=== PATIENT | female | born 1985 | race Caucasian/White ===

== ENCOUNTER 2023-08-19 21:22 | Outpatient (OUT) | payer OTHER, SELFPAY ==
[2023-08-23 16:09] LABS: HPV Aptima Positive (Negative); Pap IG (Image Guided) Note (.)
== END 2023-08-19 21:23 | disposition home or self-care (01) ==
LOC: LAB 21:27
PROVIDERS: Visit Provider Obstetrics & Gynecology
DX: R87.612 Low grade squamous intraepithelial lesion on cytologic smear of cervix (LGSIL) (principal)
CPT/HCPCS: 87624; G0145

== ENCOUNTER 2023-09-26 11:14 | Outpatient (REF) | payer OTHER, SELFPAY ==
--- OUTSIDE RECORDS SUMMARY | 2023-11-15 11:18 | XMS_ITS | CCD ---
Author Name Unknown Address [address] [facility] [address] [place] [id number] Organization [facility] Care Team Providers Care Lump Inspector Name Role Phone REQUEST, DR NONE LISTED Primary Care Unavaila ble SUSANNE ., DR BARROW Admitting Unavailable SUSANNE ., DR BARROW Consulting Unavailable SUSANNE ., DR BARROW Attending Unavailable REQUEST, DR BURROWS LISTED Primary Care Unavaila ble SUSANNE ., DR BARROW Admitting Unavailable SUSANNE ., DR BARROW Consulting Unavailable SUSANNE ., DR BARROW Attending Unavailable Provider, None Primary Care Unavailable Dean Soni Attending Unavailable Dean Soni Admitting Unavailable PUSHPA SKINNER Attending Unavailable PUSHPA SKINNER Attending Unavailable PUSHPA SKINNER Attending Unavailable Pushpa Skinner Attending Provider [phone] Unavailable Primary Care Provider Unavailpatricia e Pushpa Skinner Attending Unavailable Pushpa Skinner Admitting Unavailable Allergies Allergy Classification Reported Allergen(s) Allergy Type Date of Onset Reaction(s) Facility (1 source) Sulfonamides (Antibiotic) Drug allergy (disorder) 10-04-19 17 [facility] Repository (1 source) No Known Medication Allergies; Translations: [No Known Medication Allergies] Propensity to adverse reactions to drug (disorder) [facility] Repository (1 source) Sulfamethoxazole / Trimethoprim Drug Allergy 09-20-19 18 Unknown [facility] Medications Current Medications Medication Drug Class(es) Dates Sig (Normalized) Sig (Original) clobetasol propionate 0.5 mg/ml topical cream (1 source) Corticosteroid Start: 09-26-2023 End: 10-26-2023 clobetasol (Temovate) 0.05 % cream Indications: Vaginal irritation Apply 1 application topically in the morning. 45 g 1 09/26/2023 10/26/2023 Active FLUoxetine 10 mg oral capsule (1 source) Serotonin Reuptake Inhibitor Start: 05-16-2023 End: 05-15-2024 take 1 capsule by mouth in the morning FLUoxetine (PROzac) 10 MG capsule Indications: Anxiety associated with depression Take 1 capsule (10 mg) by mouth in the morning. 30 capsule 11 05/16/2023 05/15/2024 Active Problems Active Problems Problem Classification Problem Date Documented Date Episodic/Chronic Cancer of cervix (2 sources) Low grade squamous intraepithelial lesion on cytologic smear of cervix (LGSIL); Translations: [Atypical squamous cells of undetermined significance on cervical Papanicolaou smear] Onset: 01-24-2023 09-26-2023 Episodic Other female genital disorders (2 sources) Vaginal irritation; Translations: [Other specified noninflammatory disorders of vagina] Onset: 09-26-2023 10-17-2023 Episodic Other screening for suspected conditions (not mental disorders or infectious disease) (4 sources) Encounter for screening for malignant neoplasm of cervix; Translations: [ENC SCREENING MALIG NEOPLASM CERV] Onset: 01-21-2023 Episodic Past or Other Problems Problem Classification Problem Date Documented Date Episodic/Chronic Immunizations and screening for infectious disease (1 source) Encounter for screening for human papillomavirus (HPV); Translations: [ENC SCREENING HUMAN PAPILLOMAVIRUS] Onset: 08-18-2022 Episodic Results Test Name Value Interpretation Reference Range Facility [facility] 10-23-2023 L Specimen: [id number] Received: 10/24/23 Status: BIPIN Jensen Num: [id number] Spec Type: Surgical Subm Dr: Pushpa Skinner Tissues: A VAGINA - biopsy (VAG BX) Procedures: HE/2, Gross/Micro L4 Age/ Patient Sex Location Account Attending Physician Jesus Pradhan 38/F LABELL [id number] Pushpa Skinner SPEC NUM: [id number] RECD: 10/24/23 STATUS: BIPIN JENSEN NUM: [id number] GRACIE: 10/23/23- SUBM DR: Pushpa Skinner ENTERED: 10/24/[address]: Rabia,Lab SPEC TYPE: Surgical DEPT: DANIELLE MOSQUEDA ORDERED: HE/2, Gross/Micro L4 ORDERED: HE/2, Gross/Micro L4 Pathological Diagnosis Vaginal biopsy: Spongiotic dermatitis. Clinical Information Vaginal irritation right labia, N89.8 Gross Description Received in formalin labeled with the patient's name, date of and vaginal biopsy per requisition is a 0.4 cm in diameter circular, duncan to elizabeth mucosa excised to a depth of 0.3 cm. The specimen is inked. Entirely submitted in one cassette labeled A1. CPT Codes 10166 ---- ---- Specimen: [id number] Received: 10/24/23 Status: BIPIN Jensen Num: [id number] Spec Type: Surgical Subm Dr: Pushpa Skinner Tissues: A VAGINA - biopsy (VAG BX) Procedures: ROBEBrian Gross/Micro L4 ---- Patient: CarolynnJesus [id number] (Continued) ---- Signed (signature on file) Yosi Gonzales MD 10/26/[address] [place] [address] Coding Summaryon 05-23-2023 Coding Summary HTMLBase 64 VrptkbhlJYy3cTh+PGhlYW Q+KP2FEAHkC62uyZNwqC8h J6AIUUgTEjtiEWDVIXcPOu JoscWwSO0fwWUxBUUj IC8+UR1kREOsApckcIDdh5 T7bTG9H31kcy1sTOeblWL8 ZYStAiOsbehab6dlpFs6SP cuNmluOyBt UYRvrB84JUO4vU73Dm93aF JdyNBdr4eweGx3InHlVBDv HMK1gDtzLGqgj4QvGCHoK8 7lrKBje9L3 LJUgvFqnjOBaPwHsdRQ1wG 7hWSyoobgiz3cpviaiVnf6 bp49pHIuy3M4iGO2G6Aqzd J2EZYpzFDy CvboeXSNjS8wfhyws8nnbf wwTzPjDKTeZBd7VUd7CHAj uIvuWmNhGM21WRP2FXEkir ZgU2NkYIKe pFzcVaK3t4F7Ii0WT6UTBb qfC3NSEYDELEvceJP+PC90 lt98L2MdVyiyGdq8VAAfWI L1oNW1tH5p CIEySJqil2J0iDW1M5Mwkc Xofp5ry8rlCMYgNHdgD72m tCJhk2J7RILyhOA2BRFgbX xvRvFqcG54 Oyc+LLAhgMytb5BpCuzuo3 fhu3nvtJb5JtqwZABhmqAp qHdmOMW1j1FtAv5bKJFqtA H0oFX0vM4e MtUaEmK4LXwlR090OfCisD EgOffvS60kX1EzrAI+PHRy Pzf8IFKblMlvXH2dJ9NlRM RpbmctbGVm bTqtAT8hAHSjfqvqVASkvE 2gQVDuC5k6PiGiOaQ5PMed P7QuQHYihoncRx96cI9pEg CaLiD7MQwd W9TlogY1AQYttHGvAHaoLH O7V17bs8F4MPPxVDWiTNS2 wEH1eH8plPgcyaewcDEixW sgdmVydGlj ETjpGRwuW833ZMDnaAsbWj NvZGluZyBEYXRlOiAgMDkv MDcvMjAyMzwvdGQ+PHRkIH L0qVvbQQSl jWSoZIayDa0yfLsejIbiMU 8bAFJwmfhnGCTfeW9vQUMm fKHovMfnFX2bZJWpbgnhp0 43LwGsNWF3 OWLpwRLkG9NwgW7fIiVlCO ZeTHNgV3YwvVZmFKwwK512 BAvnDxQ2ROQorxZeG2ZqCY FsaWduOiB0 e7S6Ic7Vm2JbizorE2YzvC IcObSpWeokYKl9N6BzAcsw dHI+KL22NPAlMV77DFu2CT A8iNnzWUdh KNNsK1JpqA4fNiEqFNQaVT RkOyc+PHRhYmxlIHdpZHRo IPmpZBPtKnQrrQrtTD1dTi 9yZGVyLWNv tKxguMUbViPvo0ywAAAlJX fsKY4hlKwbV8VlzGR3WFJs i1d4Bv19B79zL5JypYK+PG VrsZJ9bNZ1 kL5mFcKuXtG0JJqfM577Ml RmmAJfBszfe1ech8vxqDz1 PxH9DBUkosKwqCisSKA6l8 YsBk88R40j IHdpZHRoPSIxNSUiIHZhbG ilxz9ybF7zGn0+PGNvbCB3 xUE3xP4vWyXjRlP2ASynI4 49InRvcCIv Xkonx1jja8ifvEc0LzGeWN JqxnSqhYpqIXC3d3XtWx27 I4OafWdvo2SrNps5eo41mI Znt0I4eCG7 D4BuLWChswkxlOLkmXmnUT 9qXFIazsheFNMbqP5hHGAp H3b0JhUiHaB6KTplO8Xvkk N1DSOmzFGm DDGmzFKHwM7iqqbxo8khbb hyBpEnSWZaDUn8KUf1BBAs uMuzLoKcHBT8HdP5VMM8dZ JnrS5ahYxs umierT2mBqf+MFU7rQLgiS TGPF9bJspmdZJ+PHRkIHN0 bEtfQZouLLRmfD5qXMPrM0 b2UlLwBlK6 RGmnJ6SnicF4VEIytBEcTN XfeRRDeC8ytbbip1qkotzo LxAkHKZqAQi1FBx0SAFkaM duOiBsZWZ0 UsB7AHV1gOLjcX8qoTwksp ucmF0lSrc+QmlydGggRGF0 INb4X7SnHph7QNUvkUxsYF 0ncGFkZGlu Yc8wcFzhxUxhWU3yHXZpkq wka144XzDfr5fhCFYpsTEi YKjkNRY2N91tt7Z3BVHvSQ EwODJ0qJV9 vL3xeVllmbiguIYouBdswh RagEwaGNidTXehD784PUYc iDrgMvLkOZm8A5TtCqr1YP CudEojMY0k jSVfGXnyBe6qxDyzdPetKS 5mAZTumrgex371XbNgp5go YJOdsOYtNSsrYEI5S48dw4 W3KTDaHTMu PKK2iMO4kK3pgCdoyjpalC VmdDsgdmVydGljYWwtYWxp H687OTAzdBnjOmSeiLf1N3 LxQxs6INFs bIfsOY8crGPqXNatDv2veP kypYbaBI1oHEBhkcwmb804 PjNvc9ffDZHllXHrEUwyVN D1W89gu3Z2 MVZxRKYoQLT5tBE2vA3neA lnbjogbGVmdDsgdmVydGlj ATfhMQaiS119LIFmvMhnAf BhdGllbnQg VSykQVy8I3AgVfsqnCK+PC 28FXDmWO88sSGkqPDln5cn yOc7ZhOnJSJrIUL4iPywUV zkb3TfVECw S88woSKlp1T7UOIroCkegE ApVfJzvNE2tW3cNFmfpuih g1vriedgDecnh3hnto24qS 59U51bYCln ZHRoPSIzMCUiIHZhbGlnbj 9rsS6hOa2+YJHwrFN1mMJ8 qW6qMYPiEgU1JUbjK004Im RvcCIvPjxj l6hju8odsEy1UcM1IXYhne RvhCosCTZ8g6GuHg01H51e IHdpZHRoPSIyMCUiIHZhbG wibb2olY6t Ii8+DAVsiUO8tDQ2gZ7eTl PyRyV1CDqpU729RfKrpJUp NcetU90vW9KauDG+PHRyPj w9WCKhdXig HN5foVLaUBykTa6tXEK2Qp IyTyQmSDetG3SsMCRbcagq fnxjcHF6XTIrQDQexZ55Fw 9udDogMTBw vQIZzK3sfnjnw7qhosmjZj FnLZQhIUq6GUl5KCJwzNtp RoHzBPG8EdP5GBV0iOHwcK 1hbGlnbjog oP9uG2QeEBLsubghUc67mP 9vYsNrOkB3HNizBxs+Uk9T XFvyXB2UGvRTNXrKXXOJHU wvdGQ+PHRk ELQ9rNxxJIznGQVseW7bMM MfB2h2QlRiKcJ5PHhmW6Bd ZQKcqanoSz54uK6hAoGeUn E1XKnbC3Cn qwZ7VAKlvKIwVAsrLXU3P6 2ck9F0UHDcLLLqCRM3hTE5 rR8qlZnfluipvNQsrSgeqf VydGljYWwt ITztZ932LWJkaJwiSyNyLc T6OzN3LSf8L0JjTbp8SYFs vXnhBO5tfKOxUWbzCz3azS wlmWhgZO1z ATJjkojdWJZawL8sEVTuuG GrxAjuEE7nNBWqtmuug849 MsOnTFV0CQMblGIsL0PkjT 9yOiAjMDAw KBGtW3ZbsOTgKXmvL424OO lbXeS3ESYxieRaZ5LvUTAf zQgzPoI0h6Z3Nd6zWQLTLY FyczwvdGQ+ VCBvJSO9vXyuVBjkIYZwiU 7bTWOdX1t2DkToUpT8WDxr Q0VoNZEmkhwmTl43sL6oMh TnOaQ2PJwg B0MbgyL9TPCvvQFcADhfEH J1Y78nk7U5QTZmWXIuFDO9 tGU4hM6lkIibaaqwhTJsmO sgdmVydGlj BIvzPHniL468KOQosYhqXb ZFTUFMRTwvdGQ+PHRkIHN0 bFhhTYqtVMQnpE3tADMbY1 i6EoRrNjW2 LIdkT3EtAFUwqvmgCw90yJ 1zRhDfFdK3QFibF5BzxcR0 ZTBjxPRrRDlqPOV6Z62wt6 Y3AQXrPLBw VZY3uNF8cX9tlIdixkttnF VmdDsgdmVydGljYWwtYWxp X588CKXvjJtxYq5LCC55KW 07U7UlGtrp dGFibGU+PHRhYmxlIHdpZH JcTBjbTYByOxGteFowAF1f Tz2eSZVfLJMdlMnrgQSzXu Vif4wgOJOk PWisQG7lbBkvG0VfkEM2KW Bod6a4Pf75B26xQ7KjrYC+ HFYzlXB2cHQ4vF4yYlDdAk F2KOnyV979 SjObxIElUaaff4rtr7ajiY h0SsPnHTZwgrAkvNpbDCO5 r8RpMi59H40eQFkiXRQcQH IyMCUiIHZh rQlxfm2oyW1aIy7+PGNvbC O2rVS0yK7aNcAyXbX4UUja L427UeThdVWqXwuhD17nJ3 JvdXA+PHRy Odt5ATVfgIqvVS7kqXHiOD saUk2lYKF3TxBnYkAqGDgu W6VtYMDtmvkifppvxPS8VP AlHSEbtE75 Gv1vpUnaMv7tNVIlNBJ6BV ItaRZuG4IlkP6nDlVxEUIe LDHwC3YluWCvBPzvT905YN wgFiB6XRDh ilUzR7NzIBOozNkvMcU8q4 S6If8BgRnduJOtJX5jCcFb QZt0J1QwOfr6SSRynMhqCJ 0ncGFkZGlu Aw0jfQqeyRreMN0wWHCjcp wcr707HxCko6ioKHIxgPUa AZelNSO5N29wv0Q6USBnNT DoWEJ1eDR6 dU6cxTzkmrtadFCeuYwrzn JuyBpiSEwqTJpsS349BFMv rJayOjRHRwt7Y0GrXzb7EO QedBayGH5q yVNfMNzqLg7vjSerpYauMW 7bEWDkfdfch203YcXon0jt QIZgsJOvAZmvEOR3X84rj6 C4LCPsAKCn WXI7qMK3qP9abTvosshayH VmdDsgdmVydGljYWwtYWxp P710IIOmaUznNv1CAvp1I4 ScLab0QQDi dHngFD0xwQGeFJcdJw4dlO zgyCzqEZ2qSAHdsbwzr515 DvKwj7mfHMImuSEwIHzoSO X9Z25gy2V0 NTQpOFXnZMT2uQK5mM1zbJ lnbjogbGVmdDsgdmVydGlj QGweHHamD408ZMLewFazPn BheWVyOjwv dGQ+AX31gz84S2TwBoebSt l1VHQjYKG2jEW9wU4kOGWj XKlhg2R6tEY0I5RbvrDcrt 9gu1erYVDl ZTo (more content not included)... [facility] Consent Formson 05-23-2023 Consent Forms [id number]#[id number] [facility] Discharge Instructions [id number]#1.00 OTGTIFF [facility] ED Clinical Summaryon 2022 ED Clinical Summary [facility] ? Urgent Care [address] [place] [id number] Clinical Summary PERSON INFORMATION Name: JESUS PRADHAN Age: 37 Years Sex: FEMALE : 1985 MRN: Acct#: Visit Reason: UC - Elbow Injury; LEFT ELBOW PAIN/INJURY Arrival: 05/22/2023 10:27:29 Discharge: 05/22/2023 11:45:00 LOS: 000 01:18 Check In: 05/22/2023 10:27:29 Checkout: 05/22/2023 11:45:00 Address: [address] [place] [id number] PCP: Provider, None PROVIDER INFORMATION Provider Role Assigned Unassigned Dean Soni PA-C ED PA 05/22/2023 10:30:32 Janette Turpin ED Nurse 05/22/2023 10:35:49 VITALS INFORMATION Vital Sign Triage Latest Temperature Tympanic Temperature Temporal Artery Pulse Rate O2 Sat Respiratory Rate Blood Pressure /100 mmHg /100 mmHg MEDICAL INFORMATION Medications Given: Allergy Information: No Known Medication Allergies PHYSICIAN DOCUMENTATION DISCHARGE INFORMATION: Discharge Disposition: Home Discharge Location: Home PATIENT EDUCATION INFORMATION Instructions: Elbow Sprain Follow-Up: With: Address: When: Return to this practice , only if needed DIAGNOSIS: Sprain of left elbow Patient Understands: Yes - Patient/family/caregiv er verbalizes understanding of instructions given Comment: Normal [facility] ED Patient Summaryon 023 ED Patient Summary [facility] ? Urgent Care [address] [place] [address] PATIENT DISCHARGE INSTRUCTIONS Patient Information Name: JESUS PRADHAN Age: 37 Years Date of : 1985 Reason For Visit: UC - Elbow Injury; LEFT ELBOW PAIN/INJURY Arrival Time: 05/22/2023 10:27:29 Primary Care Physician: Provider, Silvestre Attending Physician: Dean Soni PA-C Comment: Patient Education With: Address: When: Return to this practice , only if needed Elbow Sprain An elbow sprain is an injury to one of the strong bands of tissue (ligaments) that connect the bones of the elbow. Ligaments connect the three bones that make up the elbow joint. This injury usually occurs on the inside of the elbow and rarely on the outside. There are three types of elbow sprains: ? A grade 1 sprain is a stretching of a ligament. This injury causes minor pain and swelling, but the joint remains stable. ? A grade 2 sprain is a partial ligament tear. This injury may cause moderate pain and swelling, and a looseness in the joint that causes it to move more than normal (laxity). ? A grade 3 sprain is a complete ligament tear. This injury will cause severe pain and swelling, and the joint will become unstable. What are the causes? This condition may be caused by: ? A sudden injury (acute sprain). This may result from falling on an outstretched arm or severely twisting or straining your elbow joint. ? An overuse injury. This injury occurs gradually over time from doing activities that involve the same elbow movements over and over again. This type of injury is common in activities that require overhand throwing. What are the signs or symptoms? Symptoms of this condition include: ? Pain. ? Pain that gets worse with elbow movement. ? Swelling. ? Bruising. ? Stiffness of the elbow joint. ? Laxity of the elbow joint. ? Inability to use the elbow joint. ? Tingling or numbness. ? Hearing a pop or feeling a tear at the time of the injury. How is this diagnosed? This condition may be diagnosed based on: ? Your symptoms and history of an injury or activity that puts stress on the elbow. ? A physical exam. The health care provider will check the movement and stability of your elbow. ? Imaging tests, such as an X-ray or MRI. These tests can show how severe the sprain is and can be used to rule out a broken bone or stress fracture. How is this treated? At first, this condition may be treated by protecting, resting, icing, applying pressure (compression), and raising (elevating) the injured elbow above the level of your heart. This is known as NULL therapy. Additional treatment depends on the severity of the sprain. ? A grade 1 sprain may need only NULL therapy. ? A grade 2 sprain may be treated with NULL therapy and an elbow brace. ? A grade 3 sprain usually requires surgery to repair the ligament. Your health care provider may also recommend taking a nonsteroidal anti-inflammatory drug (NSAID) to reduce pain and swelling. You may also need to do certain exercises to maintain full movement and to strengthen the muscles of the shoulder, forearm, and elbow (physical therapy). Follow these instructions at home: If you have a brace: ? Wear the brace as told by your health care provider. Remove it only as told by your health care provider. ? Loosen the brace if your fingers tingle, become numb, or turn cold and blue. ? Keep the brace clean. ? If the brace is not waterproof: ? Do not let it get wet. ? Cover it with a watertight covering when you take a bath or shower. Managing pain, stiffness, and swelling ? If directed, put ice on your elbow: ? Put ice in a plastic bag. ? Place a towel between your skin and the bag. ? Leave the ice on for 20 minutes, 2?3 times a day. ? Move your fingers often to reduce stiffness and swelling. ? Elevate your elbow above the level of your heart while you are sitting or lying down. Activity ? Avoid activities that cause elbow pain. ? Return to your normal activities as told by your health care provider. Ask your health care provider what activities are safe for you. ? Ask your health care provider when it is safe to drive if you have an elbow brace. ? Do exercises as told by your health care provider. General instructions ? Wear an elastic bandage or compression wrap only as told by your health care provider. ? Take wbsi-bjj-sstwtef and prescription medicines only as told by your health care provider. ? Do not use any products that contain nicotine or tobacco, such as cigarettes, e-cigarettes, and chewing tobacco. These can delay healing. If you need help quitting, ask your health care provider. ? Keep all follow-up visits as told by your health care provider. This is important. Contact a health care provider if: ? Your symptoms get worse. (more content not included)... Normal [facility] Urgent Care Note- Provideron 05-22-2023 Urgent Care Note- Provider Patient: JESUS PRADHAN Age: 37 years Sex: FEMALE : 1985 Associated Diagnoses: Sprain of left elbow Author: Dean Soni PA-C History of Present Illness OCCUPATIONAL HEALTH FOLLOW-UP Date of injury: 05/14/23 Claim #: Employer: [employer] Mechanism of Injury: Slipped walking down an embankment, catching herself with her left arm outstretched. Diagnosis: Left elbow sprain This is a 37 year old here today with concerns of persisting left elbow pain after a fall at work on 05/14/23. She works for [employer] and was out in the field walking down an embankment when she slipped and fell, catching herself with an outstretched arm on the left side. She had immediate left elbow pain. She was able to get herself back up and continue to work, but pain is persisting and she feels it should be checked. It hurts to twist her forearm and full extend. It is mostly laterally where the symptoms are. No fevers, chills or malaise. No other joint pains or myalgias. No numbness, tingling or weakness. No skin rashes or lesions. No other injuries from the fall, and no previous injuries to that arm. There are no other associated symptoms. Nothing else makes the symptoms better or worse. Symptoms are described as sudden onset, moderate in nature and persisting. Health Status Allergies: No active allergies have been recorded.. Past Medical/ Family/ Social History Medical history: No active or resolved past medical history items have been selected or recorded.. Surgical history: No active procedure history items have been selected or recorded.. Family history: No family history items have been selected or recorded.. Social history: Social & Psychosocial Habits No Data Available . Problem list: No qualifying data available . Physical Examination Vital Signs Vital Signs 05/22/2023 10:44 EDT Temperature Temporal 36.9 DegC Peripheral Pulse Rate 80 bpm Respiratory Rate 16 br/min Systolic Blood Pressure 160 mmHg HI Diastolic Blood Pressure 100 mmHg HI BP Method Manual . GENERAL: Awake, alert and oriented to person, place and situation. Well nourished, well developed, non toxic, NAD. EXTREMITIES: TTP lateral left elbow, no TTP medially, pain with full extension, fair flexion, pain with rotation, no cyanosis, clubbing or obvious edema. Good muscle tone. Brisk cap refill distally, radial pulses 2+ bilaterally. SKIN: Normal inspection, no visualized ecchymosis, abrasion or rash. NEUROLOGIC: Light touch sensation in tact, strength 5/5 in bilateral upper extremities. Normal mentation. No focal neurological deficits appreciated. Medical Decision Making Orders Launch Orders Radiology: XR Elbow Complete Left (Order): 05/22/2023 10:57 EDT Stat, pain, fall, Allow Modification Per Radiologist, Transport Mode: Cart. Radiology results: X-ray (ST) X-Ray: ? XR Elbow Complete Left ? 05/22/23 11:00:00 CLINICAL HISTORY:?Pain after falling. ? COMPARISON:?None available. ? TECHNIQUE:?AP, lateral, oblique and radial and oblique radiographs of the left elbow were obtained. ? FINDINGS: ? There is no fracture, dislocation, significant joint effusion, degenerative changes, worrisome bone destruction, pathologic calcifications, or other findings of concern identified. ? ? IMPRESSION: ? NO DISPLACED FRACTURE OR POSTTRAUMATIC COMPLICATION IDENTIFIED. ? ? ? Signed By: Mazin Chung MD . Rest, ice, compress, and elevate. The patient reapplies her own elbow sleeve and extremity is neurovascularly in tact at the time of discharge. Tylenol/Motrin. She is off now until Saturday and feels confident she can resume normal work, no restrictions, especially by then. Return with new, or worsening symptoms, or symptoms failing to improve as expected and the patient voiced their understanding. Questions answered. Follow-up here only as needed. Impression and Plan Diagnosis Sprain of left elbow ([id number] S53.402A, Discharge, Medical) Plan Condition: Stable. Disposition: Discharged: Time 05/22/2023 11:29:00, to home. Patient was given the following educational materials: Elbow Sprain, Elbow Sprain. Follow up with: ; Return to this practice , only if needed. Counseled: Patient, Regarding diagnosis, Regarding diagnostic results, Regarding treatment plan, Patient indicated understanding of instructions. [Electronically Signed on: 05/22/2023 11:30 EDT] Dean Soni PA-C [Verified on: 05/22/2023 11:30 EDT] Dean Soni PA-C [facility] [place] 023 Urgent Care Record [facility] ? Urgent Care [address] [place] [address] PATIENT DISCHARGE INSTRUCTIONS Patient Information Name: JESUS PRADHAN Age: 37 Years Date of : 1985 Reason For Visit: UC - Elbow Injury; LEFT ELBOW PAIN/INJURY Arrival Time: 05/22/2023 10:27:29 Primary Care Physician: Provider, None Attending Physician: Dean Soni PA-C Comment: Visit Diagnosis: Diagnoses This Visit Sprain of left elbow (S53.402A) UC - Elbow Injury ([id number]) If you received any narcotics, sedation, or any other medication that causes drowsiness for the next 24 hours, unless otherwise directed: ? Do not drive a car. ? Do not operate machinery such as power tools, lawn mowers, drills, sewing machines, or stoves ? Avoid alcoholic beverages and drugs for allergies, nerves, or sleep ? Do not make important personal or business decisions or sign any legal documents With: Address: When: Return to this practice , only if needed Medication Information: The exam and treatment you received today in the [facility] were for an urgent problem and are not intended as complete care. It is important for you to follow up with a doctor, nurse practitioner, or physician?s seismic survey assistant for ongoing care. If your symptoms become worse or you do not improve as expected and you are unable to reach your usual health care provider, you should return to the Emergency Department, we are available 24 hours a day. For those patients who have received Radiology results, the interpretation of your X-ray as given to you by our Urgent Care physician is only a preliminary report. The Radiologist will review your films and if there is a change in the diagnosis you will be notified by phone. Please make sure you have provided a working phone number so we can reach you if necessary. In the event that you had a lab culture while you were a patient in the Urgent Care, you will be notified by phone if there is a need to change your antibiotic. Please make sure you have provided a working phone number so we can reach you if necessary. [facility] Urgent [facility] has provided you with a complete list of medications post discharge. Please inform your team cdl driver/provider of your visit and for further instruction on these medications. Any specific questions regarding your chronic medications and dosages should be discussed with your primary care physician(s) and/or pharmacist. Additional medications on your home medication list not specifically addressed. Please contact the ordering physician if you have questions about these medications. FLUoxetine (FLUoxetine 10 mg oral capsule) 1 cap(s) Oral every day. Visit Information Allergies: Substance Reaction Symptoms Type Comments No Known Medication Allergies Drug Vital Signs: Vitals and Measurements this Visit (last charted value for your 05/22/2023 visit) Vital Signs This Visit Temperature Temporal: 36.9 DegC Peripheral Pulse Rate: 80 bpm Respiratory Rate: 16 br/min Systolic Blood Pressure: 140 mmHg Diastolic Blood Pressure: 98 mmHg Blood Pressure Method: Manual Measurements This Visit Height/Length Measured: 172 cm Weight Measured: 97.52 kg Body Mass Index: 32.96 kg/m2 Body Mass Index: 32.96 kg/m2 BSA Measured: 2.16 m2 Problems List: Problem Onset Comments No Problems found Patient Education Elbow Sprain An elbow sprain is an injury to one of the strong bands of tissue (ligaments) that connect the bones of the elbow. Ligaments connect the three bones that make up the elbow joint. This injury usually occurs on the inside of the elbow and rarely on the outside. There are three types of elbow sprains: ? A grade 1 sprain is a stretching of a ligament. This injury causes minor pain and swelling, but the joint remains stable. ? A grade 2 sprain is a partial ligament tear. This injury may cause moderate pain and swelling, and a looseness in the joint that causes it to move more than normal (laxity). ? A grade 3 sprain is a complete ligament tear. This injury will cause severe pain and swelling, and the joint will become unstable. What are the causes? This condition may be caused by: ? A sudden injury (acute sprain). This may result from falling on an outstretched arm or severely twisting or straining your elbow joint. ? An overuse injury. This injury occurs gradually over time from doing activities that involve the same elbow movements over and over again. This type of injury is common in activities that require overhand throwing. What are the signs or symptoms? Symptoms of this condition include: ? Pain. ? Pain that gets worse with elbow movement. ? Swelling. ? Bruising. ? Stiffness of the elbow joint. ? Laxity of the elbow joint. ? Inability to use the elbow joint. ? Tingling or numbness. ? Hearing a pop or feeling a te (more content not included)... Normal [facility] XR Elbow Complete Lefton XR Elbow Complete Left CLINICAL HISTORY: Pain after falling. COMPARISON: None available. TECHNIQUE: AP, lateral, oblique and radial and oblique radiographs of the left elbow were obtained. FINDINGS: There is no fracture, dislocation, significant joint effusion, degenerative changes, worrisome bone destruction, pathologic calcifications, or other findings of concern identified. IMPRESSION: NO DISPLACED FRACTURE OR POSTTRAUMATIC COMPLICATION IDENTIFIED. Final Signed (Electronic Signature): Mazin Chung MD 05/22/23 11:17 a Technologist: Dirk JAVIER [facility] Pap IG, rfx Aptima HPV, rfx 16/18,45on 01-29-2023 . . Normal [facility] Comment on above: Result Comment: Perf ormed at: WB Performed By: #### P [id number] #### [facility] [address] [address] [address] Amari Diego DIAGNOSIS: Comment Abnormal [facility] Comment on above: Result Comment: EPIT HELIAL CELL ABNORMALITY. LOW GRADE SQUAMOUS INTRAEPITHELIAL LESION (LSIL). Performed at: WB Performed By: #### P [id number] #### [facility] [address] [address] [address] Amari Diego Electronically signed by: Comment Normal [facility] Comment on above: Result Comment: Silvia Kumar MD, Pathologist Performed at: WB Performed By: #### P APHR2A #### [facility] [address] [address] [address] Amari Diego HPV Aptima Positive Abnormal Negative [facility] Comment on above: Result Comment: This nucleic acid amplification test detects fourteen high-risk HPV types (16,18,31,33,35,39,45,51,52,56,58,59,66,68) without differentiation. Performed at: =G Performed By: #### P [id number] #### [facility] [address] [address] [address] Amari Diego HPV Genotype Reflex Comment Normal [facility] Comment on above: Result Comment: Crit eria not met, HPV Genotype not performed. Performed at: WB Performed By: #### P APHR2A #### [facility] [address] [address] [address] Amari Diego Methodology: Comment Normal [facility] Comment on above: Result Comment: This liquid based ThinPrep(R) pap test was screened with the use of an image guided system. Performed at: WB Performed By: #### P APHR2A #### [facility] [address] [place] [address] Dr. Amari Diego Note: Comment [facility] Comment on above: Result Comment: The Pap smear is a screening test designed to aid in the detection of premalignant and malignant conditions of the uterine cervix. It is not a diagnostic procedure and should not be used as the sole means of detecting cervical cancer. Both false-positive and false-negative reports do occur. . Performed at: WB Performed By: #### P APHR2A #### [facility] [address] [place] [address] Dr. Amari Diego Pathologist Provided ICD10 Comment [facility] Comment on above: Result Comment: R87. [id number] Performed at: WB Performed By: #### P APHR2A #### [facility] [address] [place] [address] Dr. Amari Diego Performed by: Comment [facility] Comment on above: Result Comment: Marce Ford, Tobacco Sizer (ASCP) Performed at: WB Performed By: #### P APHR2A #### [facility] [address] [place] [address] Dr. Amari Diego Recommendation: Comment Abnormal [facility] Comment on above: Result Comment: Sugg est follow up as clinically appropriate. Performed at: WB Performed By: #### P APHR2A #### [facility] [address] [place] [address] Dr. Amari Diego Specimen adequacy: Comment [facility] Comment on above: Result Comment: Sati sfactory for evaluation. Endocervical and/or squamous metaplastic cells (endocervical component) are present. Performed at: WB Performed By: #### P APHR2A #### [facility] [address] [place] [address] Dr. Amari Diego PAP ACOG PANEL 2: 30 to 65on 08-22-2022 . . [facility] Comment on above: Result Comment: Perf ormed at: WB Performed By: #### [id number] #### [facility] [address] [place] [address] Dr. Amari Diego Age Gdln ACOG Testing 30-[address] [facility] Comment on above: Performed By: #### [id number] #### [facility] [address] [address] [address] Amari Diego DIAGNOSIS: Comment Abnormal [facility] Comment on above: Result Comment: EPIT HELIAL CELL ABNORMALITY. LOW GRADE SQUAMOUS INTRAEPITHELIAL LESION (LSIL). Performed at: WB Performed By: #### [id number] #### [facility] [address] [address] [address] Amari Dieog Electronically signed by: Comment Normal [facility] Comment on above: Result Comment: Armaan Muro MD, Pathologist Performed at: WB Performed By: #### [id number] #### [facility] [address] [address] [address] Amari Diego HPV Aptima Positive Abnormal Negative [facility] Comment on above: Result Comment: This nucleic acid amplification test detects fourteen high-risk HPV types (16,18,31,33,35,39,45,51,52,56,58,59,66,68) without differentiation. Performed at: =G Performed By: #### [id number] #### [facility] [address] [place] [address] Dr. Amari Diego HPV Genotype Reflex Comment Normal [facility] Comment on above: Result Comment: Crit eria not met, HPV Genotype not performed. Performed at: WB Performed By: #### [id number] #### [facility] [address] [place] [address] Dr. Amari Diego Methodology: Comment Normal [facility] Comment on above: Result Comment: This liquid based ThinPrep(R) pap test was screened with the use of an image guided system. Performed at: WB Performed By: #### [id number] #### [facility] [address] [place] [address] Dr. Amari Diego Note: Comment Normal [facility] Comment on above: Result Comment: The Pap smear is a screening test designed to aid in the detection of premalignant and malignant conditions of the uterine cervix. It is not a diagnostic procedure and should not be used as the sole means of detecting cervical cancer. Both false-positive and false-negative reports do occur. . Performed at: WB Performed By: #### [id number] #### [facility] [address] [address] [address] Amari Diego Pathologist Provided ICD10 Comment Normal [facility] Comment on above: Result Comment: R87. [id number] Performed at: WB Performed By: #### [id number] #### [facility] [address] [address] [address] Amari Diego Performed by: Comment Normal [facility] Comment on above: Result Comment: Ilya Nelson, Tobacco Sizer (ASCP) Performed at: [facility] Performed By: #### [id number] #### [facility] [address] [address] [address] Amari Diego Specimen adequacy: Comment Normal [facility] Comment on above: Result Comment: Sati sfactory for evaluation. No endocervical component is identified. Performed at: WB Performed By: #### [id number] #### [facility] [address] [address] [address] Amari Diego Vital Signs Date Time Vital Sign Value Performing Clinician Faci lity 10-23-2023 13:40-0500 Body mass index (BMI) [Ratio] 34.26 kg/m2 Pushpa Susanne DO Work Phone: [facility] 10-23-2023 13:40-0500 Body weight 105.23 kg Pushpa Susanne DO Work Phone: [facility] 10-23-2023 13:40-0500 Diastolic blood pressure 86 mm[Hg] Pushpa Susanne DO Work Phone: [facility] 10-23-2023 13:40-0500 Systolic blood pressure 130 mm[Hg] Pushpa Susanne DO Work Phone: [facility] Healthcare Encounters Encounter Date Encounter Type Care Provider Facility Start: 10-23-2023 End: 10-23-2023 ambulatory PUSHPA SUSANNE Not Available Start: 10-23-2023 End: 10-23-2023 Patient encounter procedure Pushpa Susanne DO Work Phone: [facility] Comment on above: Vaginal irritation Start: 10-23-2023 End: 10-23-2023 ambulatory Pushpa Susanne Work Phone: [facility] Work Phone: Start: 10-23-2023 End: 10-23-2023 Departed Referred Pushpa Susanne Work Phone: [facility] Start: 09-26-2023 End: 09-26-2023 ambulatory PUSHPA SUSANNE Not Available Start: 08-19-2023 End: 08-19-2023 ambulatory PUSHPA SUSANNE Not Available Start: 05-22-2023 End: 05-22-2023 ambulatory None Provider Facility:[facility] Start: 01-21-2023 End: 01-21-2023 ambulatory NONE LISTED REQUEST Facility: Start: 08-15-2022 End: 08-15-[address] NONE LISTED REQUEST Facility: Plan of Treatment Date Care Activity Detail Author Start: 02-24-2024 End: 02-24-2024 Patient encounter procedure 02/24/2024 2:00 PM EDT Procedure Visit [facility] [address] [place] [address] Pushpa Skinner, DO [address] [place], [place] [address] [facility] Payers Date Payer Category Payer Self-pay 2023 Unknown [employer] [id number] 2023-Present [address] [place] [address] [id number] 1987 Unknown [id number] 1987 Unknown [id number] 1987 Unknown [id number] 1987 Unknown [id number] 9 1987 Unknown [id number] 9 1987 Unknown [id number] 9 1959 Self-pay [id number] 1959 Unknown [id number] Unknown [employer] [id number] Social History Date Type Detail Facility Tobacco smoking status SCIS Unknown if ever smoked [facility] Start: 1985 Sex Assigned At Female F [facility] Start: 05-15-2023 Tobacco smoking status SCIS Smokes tobacco daily [facility] History of tobacco use Cigarette Smoker [facility] Start: 10-23-2023 Alcohol intake Ex-drinker (finding) [facility] Start: 05-15-2023 History of Social function [facility] Start: 05-15-2023 Tobacco use panel [facility] Start: 05-15-2023 Alcohol Comment occasional [facility] Start: 1985 Sex Assigned At Not on file [facility] Start: 05-14-2023 Gender identity Identifies as female gender (finding) [facility] History of Present illness Narrative 10-23-2023 Laurita Jin LPN - 10/23/2023 1:30 PM EST Note Date & Type Note Facility 10-23-2023 History of Presen t illness Narrative Reason for Appointment: Patient ID: Jesus Pradhan is a 38 y.o. female who presents for vaginal biopsy Patient presents today for Acute Visit appointment. Current Medications: has a current medication list which includes the following prescription(s): clobetasol and fluoxetine. 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 HENT: Negative. Eyes: Negative. Respiratory: Negative. Cardiovascular: Negative. Gastrointestinal: Negative. Genitourinary: Positive for genital sores. Musculoskeletal: Negative. Skin: Negative. Neurological: Negative. All other systems reviewed and are negative. Hematological: Negative. Endocrine: Negative. Allergic/Immunologic: Negative. Objective Physical Exam Constitutional: Appearance: Normal appearance. She is well-developed. Genitourinary: Vulva normal. Cardiovascular: Rate and Rhythm: Normal rate and regular rhythm. Pulmonary: Effort: Pulmonary effort is normal. Breath sounds: Normal breath sounds. Abdominal: General: Bowel sounds are normal. There is no distension. Palpations: Abdomen is soft. Tenderness: There is no abdominal tenderness. There is no guarding or rebound. Musculoskeletal: General: No swelling. Normal range of motion. Right lower leg: No edema. Left lower leg: No edema. Neurological: Mental Status: She is alert and oriented to person, place, and time. Skin: General: Skin is warm and dry. Psychiatric: Mood and Affect: Mood normal. Behavior: Behavior normal. Vitals and nursing note reviewed. Exam conducted with a dental assisting instructor present. Vitals: Estimated body mass index is 34.26 kg/m as calculated from the following: Height as of 08/19/23: 5' 9 . Weight as of this encounter: 232 lb. BP: 130/86 No LMP recorded. Patient has had an ablation. Assessment/Plan Encounter Diagnosis Name Primary? Vaginal irritation Pt presents for vulvar biopsy, consents signed. Pt placed in dorsal lithotomy position with feet in stirrups, pt draped in normal fashion. Area cleansed with alcohol, lidocaine injected after allowing sufficient time to take affect. punch biopsy used, picker box operator and scissors used to remove affected area. Placed in formalin and sent to pathology. Post-procedure instructions given. Pt to apply clobetasol cream to affected area daily for one month. Documented by Laurita Jin LPN on behalf of: Pushpa Skinner DO documented in this encounter [facility] Clinical Note 05-22-2023 Note Date & Type Note Facility 05-22-2023 Note Patient Education Ma terials Follows: Elbow Sprain An elbow sprain is an injury to one of the strong bands of tissue (ligaments) that connect the bones of the elbow. Ligaments connect the three bones that make up the elbow joint. This injury usually occurs on the inside of the elbow and rarely on the outside. There are three types of elbow sprains: ? A grade 1 sprain is a stretching of a ligament. This injury causes minor pain and swelling, but the joint remains stable. ? A grade 2 sprain is a partial ligament tear. This injury may cause moderate pain and swelling, and a looseness in the joint that causes it to move more than normal (laxity). ? A grade 3 sprain is a complete ligament tear. This injury will cause severe pain and swelling, and the joint will become unstable. What are the causes? This condition may be caused by: ? A sudden injury (acute sprain). This may result from falling on an outstretched arm or severely twisting or straining your elbow joint. ? An overuse injury. This injury occurs gradually over time from doing activities that involve the same elbow movements over and over again. This type of injury is common in activities that require overhand throwing. What are the signs or symptoms? Symptoms of this condition include: ? Pain. ? Pain that gets worse with elbow movement. ? Swelling. ? Bruising. ? Stiffness of the elbow joint. ? Laxity of the elbow joint. ? Inability to use the elbow joint. ? Tingling or numbness. ? Hearing a pop or feeling a tear at the time of the injury. How is this diagnosed? This condition may be diagnosed based on: ? Your symptoms and history of an injury or activity that puts stress on the elbow. ? A physical exam. The health care provider will check the movement and stability of your elbow. ? Imaging tests, such as an X-ray or MRI. These tests can show how severe the sprain is and can be used to rule out a broken bone or stress fracture. How is this treated? At first, this condition may be treated by protecting, resting, icing, applying pressure (compression), and raising (elevating) the injured elbow above the level of your heart. This is known as NULL therapy. Additional treatment depends on the severity of the sprain. ? A grade 1 sprain may need only NULL therapy. ? A grade 2 sprain may be treated with NULL therapy and an elbow brace. ? A grade 3 sprain usually requires surgery to repair the ligament. Your health care provider may also recommend taking a nonsteroidal anti-inflammatory drug (NSAID) to reduce pain and swelling. You may also need to do certain exercises to maintain full movement and to strengthen the muscles of the shoulder, forearm, and elbow (physical therapy). Follow these instructions at home: If you have a brace: ? Wear the brace as told by your health care provider. Remove it only as told by your health care provider. ? Loosen the brace if your fingers tingle, become numb, or turn cold and blue. ? Keep the brace clean. ? If the brace is not waterproof: ? Do not let it get wet. ? Cover it with a watertight covering when you take a bath or shower. Managing pain, stiffness, and swelling ? If directed, put ice on your elbow: ? Put ice in a plastic bag. ? Place a towel between your skin and the bag. ? Leave the ice on for 20 minutes, 2?3 times a day. ? Move your fingers often to reduce stiffness and swelling. ? Elevate your elbow above the level of your heart while you are sitting or lying down. Activity ? Avoid activities that cause elbow pain. ? Return to your normal activities as told by your health care provider. Ask your health care provider what activities are safe for you. ? Ask your health care provider when it is safe to drive if you have an elbow brace. ? Do exercises as told by your health care provider. General instructions ? Wear an elastic bandage or compression wrap only as told by your health care provider. ? Take zpjr-yss-eybyury and prescription medicines only as told by your health care provider. ? Do not use any products that contain nicotine or tobacco, such as cigarettes, e-cigarettes, and chewing tobacco. These can delay healing. If you need help quitting, ask your health care provider. ? Keep all follow-up visits as told by your health care provider. This is important. Contact a health care provider if: ? Your symptoms get worse. ? You develop new symptoms. ? Your symptoms have not improved with home care after two weeks. Get help right away if: ? You have severe pain. ? Your fingers turn white, very red, or cold and blue. Summary ? An elbow sprain is an injury to a ligament in the elbow. ? An elbow sprain can be from an acute injury or repetitive stress. ? Symptoms include pain, swelling, loss of movement, and bruising. ? At first, this condition may be treated by protecting, resting, icing, applying pressu (more content not included)... [facility] Evaluation note Note Date & Type Note Facility Evaluation note No assessment information availa [facility] Work Phone: Evaluation note Note Date & Type Note Facility Evaluation note Diagnosis Vaginal irritation Pruritus of genital organs documented in this encounter [facility] Summary Purpose Family History No Family History Records FoundNo Family History Records FoundNo Family History Records FoundNo Family History Records Found Advance Directives No Advanced Directives Records FoundNo Advanced Directives Records FoundNo Advanced Directives Records FoundNo Advanced Directives Records Found Additional Source Comments INFORMATION SOURCE (unrecogn ized section and content) DATE CREATED AUTHOR 01/30/2023 [facility] DATE CREATED AUTHOR AUTHOR'S ORGANIZ ATION 05/24/2023 [facility] DATE CREATED AUTHOR AUTHOR'S ORGANIZ ATION 10/24/2023 [facility] EPIC DATE CREATED AUTHOR AUTHOR'S ORGANIZ ATION 10/28/2023 [facility] Care Teams (unrecognized sec tion and content) Team Status: Inactive Member Role Status Dates Pushpa Skinner Attending Provider Active Start: brueric 2023 End: October 23, 2023 Goals (unrecognized section and content) Goals may be documented in a n alternate section Reason for Visit (unrecogniz ed section and content) Reason Comments vaginal biopsy FOR RECORDS PERTAINING TO PATIENTS WHO ARE OR HAVE BEEN ENROLLED IN A CHEMICAL DEPENDENCY/SUBSTANCEABUSE PROGRAM, SOME INFORMATION MAY BE OMITTED. This clinical summary was aggregated from multiple sources. Caution should be exercised in using it in the provision of clinical care. This summary normalizes information from multiple sources, and as a consequence, information in this document may materially change the coding, format and clinical context of patient data. In addition, data may be omitted in some cases. CLINICAL DECISIONS SHOULD BE BASED ON THE PRIMARY CLINICAL RECORDS. [facility] [employer] [facility]. provides no warranty or guarantee of the accuracy or completeness of information in this document.
== END 2023-09-26 11:15 | disposition home or self-care (01) ==
LOC: LAB 11:14
PROVIDERS: Visit Provider Obstetrics & Gynecology
DX: R87.610 Atypical squamous cells of undetermined significance on cytologic smear of cervix (ASC-US) (principal); R87.810 Cervical high risk human papillomavirus (HPV) DNA test positive
CPT/HCPCS: 88305; 88341; 88342

== ENCOUNTER 2023-10-23 | Outpatient (REF) | payer OTHER, SELFPAY | END 2023-10-23 00:01 | disposition home or self-care (01) | LOC: LAB | PROVIDERS: Visit Provider Obstetrics & Gynecology | DX: N89.8 Other specified noninflammatory disorders of vagina (principal) | CPT/HCPCS: 88305 ==

== ENCOUNTER 2024-02-24 20:43 | Outpatient (REF) | payer SELFPAY ==
--- OUTSIDE RECORDS SUMMARY | 2024-02-24 20:49 | XMS_ITS ---
Patient Summarization (C-CDA 2.1 CCD) Created on: February 24, 2024 Lisette GELLER~CAROLYNN : 1985 Sex: Female Author Organization Sample organization Care Team Providers Care Clinical Account Specialist Name Role Phone REQUEST, DR NONE LISTED Primary Care Unavaila ble SUSANNE ., DR BARROW Admitting Unavailable SUSANNE ., DR BARROW Consulting Unavailable SUSANNE ., DR BARROW Attending Unavailable REQUEST, DR STORMY LISTED Primary Care Unavaila ble SUSANNE ., DR BARROW Admitting Unavailable SUSANNE ., DR BARROW Consulting Unavailable SUSANNE ., DR BARROW Attending Unavailable Provider, None Primary Care Unavailable Dean Soni Attending Unavailable Dean Soni Admitting Unavailable PUSHPA SKINNER Attending Unavailable PUSHPA SKINNER Attending Unavailable PUSHPA SKINNER Attending Unavailable Pushpa Skinner Attending Provider [phone] Unavailable Primary Care Provider Unavailabl e Pushpa Skinner Attending Unavailable Pushpa Skinner Admitting Unavailable Allergies Allergy Classification Reported Allergen(s) Allergy Type Date of Onset Reaction(s) Facility (1 source) Sulfonamides (Antibiotic) Drug allergy (disorder) 10-04-19 17 [facility] Repository (1 source) No Known Medication Allergies; Translations: [No Known Medication Allergies] Propensity to adverse reactions to drug (disorder) [facility] Repository (1 source) Sulfamethoxazole / Trimethoprim Drug Allergy 09-20-19 18 Unknown [facility] Encounters Encounter Date Encounter Type Care Provider Facility Start: 10-23-2023 End: 10-23-2023 ambulatory PUSHPA SUSANNE Not Available Start: 10-23-2023 End: 10-23-2023 Patient encounter procedure Pushpa Susanne DO Work Phone: [facility] Comment on above: Vaginal irritation Start: 10-23-2023 End: 10-23-2023 ambulatory Pushpa Susanne Work Phone: [facility] Work Phone: Start: 10-23-2023 End: 10-23-2023 Departed Referred Pushpa Skinner Work Phone: [facility] Start: 09-26-2023 End: 09-26-2023 ambulatory PUSHPA SANCHEZO Not Available Start: 08-19-2023 End: 08-19-2023 ambulatory PUSHPA SANCHEZO Not Available Start: 05-22-2023 End: 05-22-2023 ambulatory None Provider Facility:[facility] Start: 01-21-2023 End: 01-21-2023 ambulatory NONE LISTED REQUEST Facility: Start: 08-15-2022 End: 08-15-2022 ambulatory NONE LISTED REQUEST Facility: Medications Current Medications Medication Drug Class(es) Dates [...] morning. 30 capsule 11 05/16/2023 05/15/2024 Active Payers Date Payer Category Payer Self-pay 2023 Unknown [employer] [id number] 2023-Present [address] [place] [address] [id number] 1985 Unknown [id number] 1985 Unknown [id number] 1985 Unknown [id number] 1985 Unknown [id number] 9 1985 Unknown [id number] 9 1987 Unknown [id number] 9 1957 Self-pay [id number] 1957 Unknown [id number] Unknown [employer] [id number] Plan of Treatment Date Care Activity Detail Author Start: 02-24-2024 End: 02-24-2024 Patient encounter procedure 02/24/2024 2:00 PM EDT Procedure Visit [facility] [address] [place] [id number] Pushpa Skinner, [address] [place] [address] [facility] Problems Active Problems Problem Classification Problem Date [...] Test Name Value Interpretation Reference Range Facility Duran 10-23-2023 L Specimen: Received: 10/24/23 Status: BIPIN Jensen Num: [id number] Spec Type: Surgical Subm Dr: Pushpa Skinner Tissues: A VAGINA - biopsy (VAG BX) Procedures: HE/2, Gross/Micro L4 Age/ Patient Sex Location Account Attending Physician Jesus Pradhan 38/F LABELL [id number] Pushpa Skinner SPEC NUM: [id number] RECD: 10/24/23 STATUS: BIPIN JENSEN NUM: [id number] GRACIE: 10/23/23 DR: Pushpa Skinner ENTERED: 10/24/23 [facility] DR: Rabai,Lab SPEC TYPE: Surgical DEPT: DANIELLE MOSQUEDA ORDERED: [...] in one cassette labeled A1. CPT Codes 29477 ---- ---- Specimen: [id number] Received: 10/24/23-0 Status: BIPIN Jensen Num: [id number] Spec Type: Surgical Subm Dr: Pushpa Skinner Tissues: A VAGINA - biopsy (VAG BX) Procedures: HE/Brian, Dionte/Sachin L4 ---- Patient: Jesus Pradhan [id number] (Continued) ---- Signed (signature on file) Yosi Gonzales MD 10/26/[address] [place] [address] Coding Summaryon 05-23-2023 Coding Summary HTMLBase 64 DpobctjlQYr5hRb+PGhlYW Q+GY6WTYQkW11uzPQxsF9k I4WMXPxFFbcdUUFVNVxWNw KlbiViOI2qhEOhEOQk IC8+DI7jKFVmUkrptUAuq6 K7wLE4T34omv5zFConfDE2 VGFyEyMiwfodr7iguXx4JI cuNmluOyBt OGUbgO24DTD5yI16Ci93pE RvnHWnj0ypiWo3NyWxAPWs JXC5gRrlIJygt1XqXHDkW0 2kvYQqh1P9 UMRvyObqySTyNdKxbXP5fC 9lMGjlrakry3wspfvtIeh0 te33oPYaa0J7bSZ9W8Cjmr E6IRSwwBBd GajypIZLvH0dozcms4xcau dhIhSpCTMpYMm2LKt1KPTe sCwhEqIyQF19KRN1FGRuxf QxH1AnEXIq cSbmVoC1v7L5Pr8HQ2KPQl hkL4NDJOSSOEdksLR+PC90 cq00M6IsUyteTpz2AXOmLB V7iCR8kT2r MTQpFWxsi9R0lJV8S7Mdni Qvkk4ic6ukSNMtBChkW40a zNBzz8G5SQQefQV1TSCikW cbTqEvmZ23 Oyc+LRYvtExsi2SjAjamc0 sos6yslXz1OmeeAHPlfhQm uOokRXQ1y9QuXu1hQJMmbN K6iQA2cD8g VyGaXzX0ETajJ197IhFtfE VzIlstI50rH3HuxPU+PHRy Eft8XBNwkQxkSC3oO0GjAU RpbmctbGVm kZsqBC6mSNEkqhubMFYniB 6rIGFcM8f1HuTiQvT8PMpw S9FtOAXhjdarYa46iH5xOq BmHsC2NQpp G3QqeaC7DKOafELfMBxeZE V2P78mh3W7VMZsJBOtTMW2 uCX9wF0quVnufrsioCLixX sgdmVydGlj YDayUFwjG187OPUtbHurEg NvZGluZyBEYXRlOiAgMDkv MDcvMjAyMzwvdGQ+PHRkIH I7jBrcCWPd zSJfJSijIo3glJlnfMdoIP 2vQKGmdnnyGOOloE5uXSOm eHAjdKxcCW3aUHPpptjtc1 47WxHpDVB1 PZUzqLFoX2AwnX3dBjEmUH GzODKbF4TsgKFqSThiM062 PTxtOfQ3OCZjatKkR5InHF FsaWduOiB0 q0Q7Oe5Ex5BabgbmE9XwiA ThWgAsTdaaYEs0J0KcIpoe dHI+PN30ABTpSV14ZOg1PL F0iMlwOWmm LZYvS4DkrR9uSeMwBBXzCZ RkOyc+PHRhYmxlIHdpZHRo AZczCPArOcZhoRccFF7lBe 9yZGVyLWNv hYgfnGXyClPkk9ekIMOxRR xaXP1xeFkcL2XadFL8SLBr c8y0Yd48G60uX2RcuZU+PG VwzNI7aDZ9 vH8cAbLeSkA9SZgqG423Tz FsgQBmEbqxi1kid0nvkMq9 JiS5LFIxptLzqDzkSDT1q9 BePz83O58o IHdpZHRoPSIxNSUiIHZhbG vhpp4vcF4aCz8+PGNvbCB3 gLC0fD1dHeYvPjY9LTvlQ9 49InRvcCIv Lxrxd5qvl7hryCh7HhNaPM QhyqFboJtsWUX5l0BjSh71 Q9LgaIwkz8XdNqj2qm95gX Nsn6T1bWL4 G7DnHFAhirnfqOOvoJbkPQ 6gHDEiethiSNCdyW7qAMGy D0v6HaPwKwV7ZHfkA3Sxmo O2SPTssZMg AHFvpCXItN2alepmu9pckp jdLiIrBGWfTLn9QJu3NFOr eSgcKeTrBQT1NbF0ZFQ9yT VrpF1alDvr fxnxkP9vDhi+UMS7wBRiyR HAVE1xNhzkaUF+PHRkIHN0 vEpxYDdrBZWbyZ0lMRPiH9 f0JyPfTwR6 WKmzF8ClifX4MUGtqVUcII AbjASUjJ7fpighm5slxfjw TwAeOUXyZBo5TUe2EJBpkN duOiBsZWZ0 AgH1XWU9eYYbsO2qrPjgct snmD2rLdz+QmlydGggRGF0 SCo2Z4JoOku6PKQbwDbrMT 0ncGFkZGlu Ky2zaRwdpLyxZU1vZKOqwi jej952PjAnf0xrLPIkwYRs FUbiXYA0D38ig1Q0ULXoIT NyXPV9hNB3 nZ9fnXwmyxsopKBqiDjddz CkqJqtNAraAYidS902UBXk rDsxBbMaQGu1C8OaGzq2IT QjzFcoBB6a mEAwZGxvFd7wwYwpxTrlCR 4fKFEtjhxkk865JpRxw1ku CWSdwIUdWKfjKEO5E15vs3 W7MADmNRXx GXI9qDY1tO9peBqifxgcpP VmdDsgdmVydGljYWwtYWxp P791FDWakQppTdNsiOq1C0 YcMyi5VTHl sZwcVO9anXJxDNerXo1mtW xywCytER6jRDXuzvqfp382 HaScb6bcWXGhrRUmWCesIW K6W95er8Q5 ZFCjTMHbMQE5kJI2aV4cnW lnbjogbGVmdDsgdmVydGlj QHpqIKoeF442TQOswGakRq BhdGllbnQg KTywRIu3Q0GmSbitgUY+PC 41XEOzHA61aADalPVkt0xq mSy1LvWmQYNaLPF0hBhkQP lde7NfRXVh F28pyPSgq3S0JSMzrLnqpS EqRzQkpXK8qJ1fXAiztuvj q8lciffhCcgwg0kwma06fF 80A09mFQqn ZHRoPSIzMCUiIHZhbGlnbj 1jbO6tDu8+QIOemWQ3bSS9 bX2oSRPjWvJ9JSqmU467Aa RvcCIvPjxj w1bcc2pjvOo1TyN4HVXjvv DauPxtJBG8z6TzKn18A55p IHdpZHRoPSIyMCUiIHZhbG iqgv5daS5v Ii8+JKYjgLY8wPO6eW2gXa ShGaV6ORqnR844GfXvmEVd MuluS72eM0SmeTJ+PHRyPj s7DJXswRuy VN8pdHFsUZeyKe9qHWU9Up IzVaXjGShiL4RxFSQkmrhk mehviTD3SHXxQUZzxV65Ry 9udDogMTBw gUSIsX9iaqdkh0jyvjduCy KlOCVpPQw0ZSe5SDUlbGoh XqIuNJX2AjE9YII2mWBwaW 1hbGlnbjog dA7qM4GoRMWultfwSr68lE 9rZtMyUbO5DPjiQjn+Uk9T YTstHF5VSbKZNAzOGPRFAI wvdGQ+PHRk NZQ2sXyvRXnzFUTsuP0pMM WtP8d6SpNwQzX5VGsfT4Mk RSBfnwjtLr50kX1rBjXvCu V3QQqjC7Os xcT1FJKzpKJqHPtoIPY1U8 2jw4E0PLWlBRIpATG4wKV4 lS6xqCzzisoqnYHvgOctjy VydGljYWwt AMpuE417VIVirTzfPmXvAi F2XeH8RQv5B3JxQum6CLFe xAymGF2ftFRdCRdfWs2lfB lkxPmfTA3t ODEjmwznRKGwrA0iTDGcdH ZemVnmHE2gTYKthczsw573 WbHcXTW6PSDqmJWuP2UeiB 9yOiAjMDAw SOTgE3OqvAGdGYvrB532MG cbSrX3IMAdszDsT6HfNUZy dZznDmP8t3W8Pk9xXETEVN FyczwvdGQ+ BMSxQQM0qQgiKBexTRMocK 7cBQWsU4l7JxMfGmY0MKrt E7QyDSSueaivDb21gZ2uUp TfFrG5FGqu A0JhqsY0FJDsmVFmDLvmBP W2B87zq5K3RUGsZDAxKLN0 zUA2gO7uvYnwagbiuTMamI sgdmVydGlj IGsuTKjaU094UGXlpMhyMm ZFTUFMRTwvdGQ+PHRkIHN0 uSkeVPozNKGybQ0dVRMrN5 n8HtAjMeN8 JHztY0UvWNMqdjlxJv46fE 1bKkNpZmW0RSblD0JaidE7 SKNkoGWvUSpxMRR8C34mh6 F3IGClXDKp PAI2wNJ6dR0rmFrfcjgiuP VmdDsgdmVydGljYWwtYWxp I765JOJwmRvjXj7OCT49OW 52F8OzIztw dGFibGU+PHRhYmxlIHdpZH PrDVllBMBhXbBslUjjBR1i Jh1wRHDpUZBseCenrJUrSh Uyj1yeGEFw ZOnfOB4ghHhtL3JyyNB3FI Raq2g9Hm71Y40hH9EthHR+ WYKgzWT7dBX8xS2nGuAyLi L4PRjrV653 JoXrqKFiHqmuu9cdk0rkyZ a1LjMnPISspiVwsLhnMFD4 x6ErBp15G65gSBerUTYgXJ IyMCUiIHZh fGjprg3boA1oKs1+PGNvbC L3xKI0rH7mHnGzStM7CIrb T514WqOtuBAxLmeyE12xU5 JvdXA+PHRy Hpg9KUAtmEkkTV2jrEMeDQ qbLw7jVOK5FnUoDwMkYFwz Y5IbNLDvmpslsraaiTV5XM EfCQYwhZ17 Av7bgPtjOd5jOTKfZIO9PU IjmENaR6FtlI1cOnFmQYUs KFMxJ1HhhIYvGJcwU973ES dpQpE1GUQg geLhK9ItIFLlnHoyKoJ2u9 M4Zw6PyYwnhTKqXU0uMqFi JTw5W9SmNng0QPOhxIccGY 0ncGFkZGlu Yj0qgTilmLksOU3cJADtcr adj998XeUwh1zxDBQnpHDi HRfeNLB3W27fz2R9XTJcTF ItMFP1mAO1 mO7mzVyvnhprgBKcdNtzpn ShmHwxBZvhABonC265DNPv rYhmTfSIVkk9F3HsCkz6AX NmxJlrYP1a tLXaZCeaUb2pdNughVxpOR 7oXGPmhranc285KuIha2ir UCAezYDcZDzwIAV8I31eb8 S5TERuEDPq EVB2rNG7jL8ekHojvlwhpJ VmdDsgdmVydGljYWwtYWxp H044DHVixPqfWr0IPjf7H0 OqEvs3NVFb fJqxSN6dbXLsDQubAm9jmJ vehNkaIX9rMAOcwifhf759 JjTzt6ybUUQxeMQdRTvcSG P9Y37xh9K9 HLCyTXLjJQM4yAX1pC4koQ lnbjogbGVmdDsgdmVydGlj JDluFTbpT814VMDtjTxoEa BheWVyOjwv dGQ+OT04ga07U8WzDqolIh v7WRBqKFZ1tLK1rA0iCKBy HMjrb7M0fHP8D3GvvtHzcx 5dg6trUZYm ZTo (more content not included)... [facility] Consent Formson 05-23-2023 Consent Forms [id number]#1.0 [facility] Discharge Instructions [id number] OTGTIFF [facility] ED Clinical Summaryon 2022 ED Clinical Summary [facility] ? Urgent Care [address] [place] [id number] Clinical Summary PERSON INFORMATION Name: JESUS PRADHAN Age: 37 Years Sex: FEMALE : 1985 MRN: Acct#: Visit Reason: UC - Elbow Injury; LEFT ELBOW PAIN/INJURY Arrival: 05/22/2023 10:27:29 Discharge: 05/22/2023 11:45:00 LOS: 000 01:18 Check In: 05/22/2023 10:27:29 Checkout: 05/22/2023 11:45:00 Address: [address] [place] [address] PCP: Provider, None PROVIDER INFORMATION Provider Role [...] verbalizes understanding of instructions given Comment: Normal [facility] ED Patient Summaryon 023 ED Patient Summary [facility] ? Urgent Care [address] [place] [address] PATIENT DISCHARGE INSTRUCTIONS Patient Information Name: JESUS PRADHAN Age: 37 Years Date of : 1985 Reason For Visit: UC - Elbow Injury; LEFT ELBOW PAIN/INJURY Arrival Time: 05/22/2023 10:27:29 Primary Care Physician: Provider, None Attending Physician: Dean Soni PA-C Comment: Patient [...] by your health care provider. ? Take tajb-xfh-gbitasv and prescription medicines only as told by [...] get worse. (more content not included)... Normal [facility]gent [facility] Note- Provideron 05-22-2023 Urgent Care Note- Provider Patient: JESUS PRADHAN Age: 37 years Sex: FEMALE : 1985 Associated Diagnoses: Sprain of left elbow Author: Dean Soni PA-C History of Present Illness OCCUPATIONAL HEALTH FOLLOW-UP Date of injury: 05/14/23 Claim #: Employer: [employer] Mechanism of Injury: Slipped walking down an embankment, catching herself with her left arm outstretched. Diagnosis: Left elbow sprain This is a 37 year old here today with concerns of persisting left elbow pain after a fall at work on 05/14/23. She works for [employer] and was out in the field walking [...] and Plan Diagnosis Sprain of left elbow (MRQ25-LE S53.402A, Discharge, Medical) Plan Condition: Stable. Disposition: [...] on: 05/22/2023 11:30 EDT] Dean Soni PA-C Normal [facility] Recordon 023 Urgent Care Record [facility] ? Urgent Care [address] [place] [address] PATIENT DISCHARGE INSTRUCTIONS Patient Information Name: JESUS PRADHAN Age: 37 Years Date of : 1985 Reason For Visit: UC - Elbow Injury; LEFT ELBOW PAIN/INJURY Arrival Time: 05/22/2023 10:27:29 Primary Care Physician: Provider, None Attending Physician: Dean Soni PA-C Comment: Visit Diagnosis: Diagnoses This Visit Sprain of left elbow (S53.402A) UC - Elbow Injury ([id number]) If you received any narcotics, sedation, or [...] and treatment you received today in the [facility] were for an urgent problem and are not intended as complete care. It is important for you to follow up with a doctor, nurse practitioner, or physician?s psychological assistant for ongoing care. If your symptoms [...] so we can reach you if necessary. [facility] has provided you with a complete list of medications post discharge. Please inform your consulting sme/provider of your visit and for further instruction [...] a te (more content not included)... Normal [facility] XR Elbow Complete Lefton XR Elbow [...] MD 05/22/23 11:17 a Technologist: Dirk JAVIER [facility] Pap IG, rfx Aptima HPV, rfx 16/18,45on 01-29-2023 . . Normal [facility] Comment on above: Result Comment: Perf ormed at: WB Performed By: #### P APHR2A #### [facility] [address] [address] [address] Amari Diego DIAGNOSIS: Comment Abnormal [facility] Comment on above: Result Comment: EPIT HELIAL CELL ABNORMALITY. LOW GRADE SQUAMOUS INTRAEPITHELIAL LESION (LSIL). Performed at: WB Performed By: #### P APHR2A #### [facility] [address] [address] [address] Amari Diego Electronically signed by: Comment Normal [facility] Comment on above: Result Comment: Silvia Kumar MD, Pathologist Performed at: WB Performed By: #### P APHR2A #### [facility] [address] [address] [address] Amari Diego HPV Aptima Positive Abnormal Negative [facility] Comment on above: Result Comment: This nucleic acid amplification test detects fourteen high-risk HPV types (16,18,31,33,35,39,45,51,52,56,58,59,66,68) without differentiation. Performed at: =G Performed By: #### P APHR2A #### [facility] [address] [place] [address] Dr. Amari Diego HPV Genotype Reflex Comment Normal [facility] Comment on above: Result Comment: Crit eria not met, HPV Genotype not performed. Performed at: WB Performed By: #### P APHR2A #### [facility] [address] [place] [address] Dr. Amari Diego Methodology: Comment Normal [facility] Comment on above: Result Comment: This liquid based ThinPrep(R) pap test was screened with the use of an image guided system. Performed at: WB Performed By: #### P APHR2A #### [facility] [address] [place] [address] Dr. Amari Diego Note: Comment Normal [facility] Comment on above: Result Comment: The Pap smear is a screening test designed to aid in the detection of premalignant and malignant conditions of the uterine cervix. It is not a diagnostic procedure and should not be used as the sole means of detecting cervical cancer. Both false-positive and false-negative reports do occur. . Performed at: WB Performed By: #### P APHR2A #### [facility] [address] [place] [address] Dr. Amari Diego Pathologist Provided ICD10 Comment Normal [facility] Comment on above: Result Comment: R87. 612 Performed at: WB Performed By: #### P APHR2A #### [facility] [address] [place] [address] Dr. Amari Diego Performed by: Comment Normal [facility] Comment on above: Result Comment: Marce Ford, Intermediate Card Tender (ASCP) Performed at: WB Performed By: #### P APHR2A #### [facility] [address] [place] [address] Dr. Amari Diego Recommendation: Comment Abnormal [facility] Comment on above: Result Comment: Sugg est follow up as clinically appropriate. Performed at: WB Performed By: #### P APHR2A #### [facility] [address] [address] [address] Amari Diego Specimen adequacy: Comment Normal [facility] Comment on above: Result Comment: Sati sfactory for evaluation. Endocervical and/or squamous metaplastic cells (endocervical component) are present. Performed at: WB Performed By: #### P APHR2A #### [facility] [address] [address] [address] Amari Diego PAP ACOG PANEL 2: 30 to 65on 08-22-2022 . . Normal [facility] Comment on above: Result Comment: Perf ormed at: WB Performed By: #### [id number] #### [facility] [address] [place] [address] Dr. Amari Diego Age Gdln ACOG Testing 30-65 Normal [facility] Comment on above: Performed By: #### 4 [id number] #### [facility] [address] [address] [address] Amari Diego DIAGNOSIS: Comment Abnormal [facility] Comment on above: Result Comment: EPIT HELIAL CELL ABNORMALITY. LOW GRADE SQUAMOUS INTRAEPITHELIAL LESION (LSIL). Performed at: WB Performed By: #### [id number] #### [facility] [address] [place] [address] Dr. Amari Diego Electronically signed by: Comment Normal [facility] Comment on above: Result Comment: Armaan Muro MD, Pathologist Performed at: WB Performed By: #### 4 [id number] #### [facility] [address] [place] [address] Dr. Amari Diego HPV Aptima Positive Abnormal Negative [facility] Comment on above: Result Comment: This nucleic acid amplification test detects fourteen high-risk HPV types (16,18,31,33,35,39,45,51,52,56,58,59,66,68) without differentiation. Performed at: =G Performed By: #### 4 [id number] #### [facility] [address] [place] [address] Dr. Amari Diego HPV Genotype Reflex Comment Normal [facility] Comment on above: Result Comment: Crit eria not met, HPV Genotype not performed. Performed at: WB Performed By: #### 4 [id number] #### [facility] [address] [address] [address] Amari Diego Methodology: Comment Normal [facility] Comment on above: Result Comment: This liquid based ThinPrep(R) pap test was screened with the use of an image guided system. Performed at: WB Performed By: #### 4 [id number] #### [facility] [address] [address] [address] Amari Diego Note: Comment Normal [facility] Comment on above: Result Comment: The Pap smear is a screening test designed to aid in the detection of premalignant and malignant conditions of the uterine cervix. It is not a diagnostic procedure and should not be used as the sole means of detecting cervical cancer. Both false-positive and false-negative reports do occur. . Performed at: WB Performed By: #### [id number] #### [facility] [address] [address] [address] Amari Diego Pathologist Provided ICD10 Comment Normal [facility] Comment on above: Result Comment: R87. 612 Performed at: WB Performed By: #### 4 [id number] #### [facility] [address] [place] [address] Dr. Amari Diego Performed by: Comment Normal [facility] Comment on above: Result Comment: Ilya Nelson, Intermediate Card Tender (ASCP) Performed at: [facility] Performed By: #### 4 [id number] #### [facility] [address] [place] [address] Dr. Amari Diego Specimen adequacy: Comment Normal [facility] Comment on above: Result Comment: Sati sfactory for evaluation. No endocervical component is identified. Performed at: WB Performed By: #### 4 [id number] #### [facility] [address] [place] [address] Dr. Amari Digeo Social History Date Type Detail Facility Start: 10-23-2023 Alcohol intake Ex-drinker (finding) [facility] Start: 05-15-2023 Tobacco smoking status NHIS Smokes tobacco daily [facility] Start: 05-15-2023 History of Social function [facility] Start: 05-15-2023 Tobacco use panel [facility] Start: 05-15-2023 Alcohol Comment occasional [facility] Start: 05-14-2023 Gender identity Identifies as female gender (finding) [facility] Start: 1985 Sex Assigned At Female F [facility] Start: 1985 Sex Assigned At Not on file [facility] Tobacco smoking status KSIS Unknown if ever smoked [facility] History of tobacco use Cigarette Smoker [facility] Vital Signs Date Time Vital Sign Value Performing Clinician Faci lity 10-23-2023 13:40-0500 Body mass index (BMI) [Ratio] 34.26 kg/m2 Pushpa Susanne DO Work Phone: [facility] 10-23-2023 13:40-0500 Body weight 105.23 kg Pushpa Susanne [employer] Work Phone: [facility] 10-23-2023 13:40-0500 Diastolic blood pressure 86 mm[Hg] Pushpa Susanne DO Work Phone: [facility] 10-23-2023 13:40-0500 Systolic blood pressure 130 mm[Hg] Pushpa Susanne DO Work Phone: [facility] History of Present illness Narrative 10-23-2023 Lauritarenetta Jin LPN - 10/23/2023 1:30 PM EST [...] History: Diagnosis Date Cervical dysplasia Encntr for lithoplate maker exam (general) (routine) w/o abn findings History [...] nursing note reviewed. Exam conducted with a program host present. Vitals: Estimated body mass index is [...] time to take affect. punch biopsy used, greens picker and scissors used to remove affected area. Placed in formalin and sent to pathology. Post-procedure instructions given. Pt to apply clobetasol cream to affected area daily for one month. Documented by Laurita Jin LPN on behalf of: Pushpa Skinner DO documented in this encounter [facility] Clinical Note 05-22-2023 Note Date & Type [...] by your health care provider. ? Take [id number] and prescription medicines only as told by [...] icing, applying pressu (more content not included)... [facility] Evaluation note Note Date & Type Note Facility Evaluation note No assessment information availa [facility] Work Phone: Evaluation note Note Date [...] and content) DATE CREATED AUTHOR 01/30/2023 [facility] DATE CREATED AUTHOR AUTHOR'S ORGANIZ ATION 05/24/2023 [facility] l DATE CREATED AUTHOR AUTHOR'S ORGANIZ ATION 10/24/2023 [facility] EPIC DATE CREATED AUTHOR AUTHOR'S ORGANIZ ATION 10/28/2023 [facility] Care Teams (unrecognized sec tion and content) Team Status: Inactive Member Role Status Dates Pushpa Skinner Attending Provider Active Start: eric 2023 End: October 23, 2023 Goals (unrecognized [...] BE BASED ON THE PRIMARY CLINICAL RECORDS. [facility] [employer] [facility]. provides no warranty or guarantee of the accuracy or completeness of information in this document.
[2024-02-27 09:11] LABS: Pap IG (Image Guided) Note (.)
== END 2024-02-24 20:44 | disposition home or self-care (01) ==
LOC: LAB 20:43
PROVIDERS: Visit Provider Obstetrics & Gynecology
DX: R87.610 Atypical squamous cells of undetermined significance on cytologic smear of cervix (ASC-US) (principal); R87.810 Cervical high risk human papillomavirus (HPV) DNA test positive
CPT/HCPCS: 88175

== ENCOUNTER 2024-04-13 12:50 | Outpatient (OUT) | payer OTHER, SELFPAY ==
--- NOTE | 2024-04-13 13:47 | XR_ITS ---
[address] [address] Patient Name: JESUS PRADHAN MRN: [id number] date: 1985 Sex: F Assigned Patient Location: [facility] Current Patient Location: Accession/Order Number: [id number] Exam Date: 04/13/2024 13:50 Report Date: 04/14/2024 08:21 At the request of: PUSHPA HARRELL Procedure: XR chest 2V EXAMINATION: XR chest 2V HISTORY: E Cigarette Use COMPARISON: 07/21/2014 TECHNIQUE: PA and lateral FINDINGS: LUNGS: No significant pulmonary parenchymal abnormalities. VASCULATURE: No increased pulmonary vasculature. PLEURA: No pneumothorax, effusion, or pleural thickening. CARDIAC: No cardiomegaly or cardiac silhouette abnormality. MEDIASTINUM: No visible mass or adenopathy. BONES: No fracture or visible bone lesion. OTHER: Bilateral nipple piercings XR/XR chest 2V IMPRESSION: No acute cardiopulmonary process Electronically authenticated by: MARTIN OROURKE Date: 04/14/2024 08:21
[2024-04-13 14:20] LABS: Basophils Absolute Auto 0.1 10^3/uL (0.0-0.1); Basophils Percent Auto 0.5 % (0.2-2.0); Eosinophils Absolute Auto 0.2 10^3/uL (0.0-0.7); Hematocrit 39.6 % (36.0-48.0); Immature Granulocytes Abs Auto 0.07 10^3/uL (0.00-0.03); Immature Granulocytes Pct Auto 0.6 % (0.0-0.5); Lymphocytes Absolute Auto 2.5 10^3/uL (1.2-3.8); Lymphocytes Percent Auto 22.2 % (20.5-60.0); Mean Corpuscular HGB Conc 32.8 g/dL (29.9-35.2); Mean Corpuscular Volume 91.5 fL (81.0-99.0); Mean Platelet Volume 9.6 fL (9.5-13.5); Monocytes Absolute Auto 0.7 10^3/uL (0.3-0.8); Monocytes Percent Auto 6.4 % (1.7-12.0); Neutrophils Absolute Auto 7.5 10^3/uL (1.4-6.5); Neutrophils Percent Auto 68.3 % (43.0-75.0); Platelet Count 312 10^3/uL (150-450); Red Blood Count 4.33 10^6/uL (4.20-5.40); Red Cell Distribution Width 12.8 % (11.0-15.0); White Blood Count 11.1 10^3/uL (4.0-11.0)
[2024-04-13 14:24] LABS: Alanine Aminotransferase 37 U/L (14-59); Albumin Level 3.7 g/dL (3.4-5.0); Alkaline Phosphatase 83 U/L (46-116); Anion Gap 11.5; Aspartate Amino Transferase 21 U/L (15-37); BUN Creatinine Ratio 13.6; Bilirubin Direct 0.1 mg/dL (0.0-0.2); Bilirubin Total 0.4 mg/dL (0.2-1.0); Calcium 8.8 mg/dL (8.5-10.1); Carbon Dioxide 27.2 mmol/L (21.0-32.0); Chloride 101 mmol/L (98-107); Estimated GFR (African America >60 (>=60); Estimated GFR (Non-African Ame >60 (>=60); Globulin 3.6 g/dL; Glucose 93 mg/dL (74-106); Potassium 3.7 mmol/L (3.5-5.1); Sodium 136 mmol/L (136-145); Total Protein 7.3 g/dL (6.4-8.2)
[2024-04-13 14:33] LABS: INR 0.94; Partial Thromboplastin Time 30.3 sec (22.3-36.2)
== END 2024-04-13 12:51 | disposition home or self-care (01) ==
LOC: PST 12:53
PROVIDERS: Visit Provider Obstetrics & Gynecology
DX: Z01.810 Encounter for preprocedural cardiovascular examination (principal); Z01.812 Encounter for preprocedural laboratory examination; N92.0 Excessive and frequent menstruation with regular cycle; R10.2 Pelvic and perineal pain; N94.6 Dysmenorrhea, unspecified; N94.10 Unspecified dyspareunia
CPT/HCPCS: 71046; 80048; 80076; 85025; 85610; 85730; 86850; 86900; 86901

== ENCOUNTER 2024-04-22 06:04 | Day surgery (SDC) | payer OTHER, SELFPAY ==
[2024-04-13 13:42] VITALS: BP 146/91; PULSE 78; TEMP 36.4; O2SAT 99; BMI 35.3
[2024-04-22] VITALS (12 sets, daily range): BP systolic 115–156; BP diastolic 69–101; PULSE 76–101; TEMP 35.8–36.9; O2SAT 93–99; BMI 35.2
--- OUTSIDE RECORDS SUMMARY | 2024-04-22 06:07 | XMS_ITS | CCD ---
Author Organization [facility] Care Team Providers Care Meat Butcher Name Role Phone REQUEST, DR NONE LISTED Primary Care Unavaila ble SUSANNE ., DR BARROW Admitting Unavailable SUSANNE ., DR BARROW Consulting Unavailable SUSANNE ., DR BARROW Attending Unavailable REQUEST, DR NONE LISTED Primary Care Unavaila ble SUSANNE ., DR BARROW Admitting Unavailable SUSANNE ., DR BARROW Consulting Unavailable SUSANNE ., DR BARROW Attending Unavailable Provider, None Primary Care Unavailable Dean Soni Attending Unavailable Dean Soni Admitting Unavailable PUSHPA SKINNER Attending Unavailable PUSHPA SKINNER Attending Unavailable PUSHPA SKINNER Attending Unavailable Pushpa Skinner Attending Provider Unavailable Primary Care Provider Unavailabl e Pushpa Skinner Attending Unavailable Pushpa Skinner Admitting Unavailable Allergies Allergy Classification Reported Allergen(s) Allergy Type Date of Onset Reaction(s) Facility (1 source) Sulfonamides (Antibiotic) Drug allergy (disorder) 10-04-19 17 [facility] Repository (1 source) No Known Medication Allergies; Translations: [No Known Medication Allergies] Propensity to adverse reactions to drug (disorder) [facility] Repository (1 source) Sulfamethoxazole / Trimethoprim [...] Test Name Value Interpretation Reference Range Facility [facility] 10-23-2023 L Specimen: [id number] Received: 10/24/23 Status: BIPIN Jensen Num: [id number] Spec Type: Surgical Subm Dr: Pushpa Skinner Tissues: A VAGINA - biopsy (VAG BX) Procedures: HE/2, Gross/Micro L4 Age/ Patient Sex Location Account Attending Physician Jesus Pradhan 38/F LABELL [id number] Pushpa Skinner SPEC NUM: [id number] RECD: 10/24/23 STATUS: BIPIN JENSEN NUM: [id number] GRACIE: 10/23/23- SUBM DR: Pushpa Skinner ENTERED: 10/24/23 [facility] DR: Silvia Camarillo SPEC TYPE: Surgical DEPT: DANIELLE MOSQUEDA ORDERED: [...] in one cassette labeled A1. CPT Codes 81879 ---- ---- Specimen: [id number] Received: 10/24/23 Status: BIPIN Mikey Num: [id number] Spec Type: Surgical Subm Dr: Pushpa Skinner Tissues: A VAGINA - biopsy (VAG BX) Procedures: HE/Brian, Gross/Micro L4 ---- Patient: Jesus Pradhan [id number] (Continued) ---- Signed (signature on file) Yosi Gonzales MD 10/26/[address] [place] [address] Coding Summaryon 05-23-2023 Coding Summary HTMLBase 64 GwdqqfumUHi9dLk+PGhlYW Q+TB2HVJQoU39uwFEohI7j L8NHUGaFKbdiTRXLVZcSBa UyruEfXW1uuKGfSCMi IC8+SQ6oUJJlBpdfeCLee4 A9iWA0V55cot4jALfztLO1 BQWiYaChzvtym0tnzVb2GK cuNmluOyBt OREewA36DGG5cH93Di67uK QdvNUjr3lblXb4DpRjOKQu NUK1dYdlUNhsd0SjWENnV0 5xfPUwj8P1 BBKlzZxxlMMfDdMxeJE8pB 3oGHacmnqgg1tqwyqtLkl6 tz92bGUrs8Z2xQS3G2Lnep M1APSpwHQw BucrxDDOnI5wsficj6taac jvWvJkJMSoVPc0YKf5AEYa wKpnEnPwDV45SUH8JJZcak FrT5UyPJHg qOoeKzD1g9A2Nu8ZH9IPTc gwZ4HRVTLHTEausDY+PC90 yq42T9AaJuumDjl9NAFcNN S0iGS1tY1e QAUaGIcue0H1hJM1Z8Beex Ginj0ih7fxLCTeCRktC41y uZWjs9G2DJEzzWV7NZPzcG buPlHzwY37 Oyc+VHFtnBbxg3XkTklzv9 mfl5qszYd0RlysIQEgziRe tDkfZAZ2c1VbZb3zTWUslR U1sGS7fH4j RfYjXmK1HRweZ217DmFzwP LbRtfaH94tM5UllJC+PHRy Pwq8WWYyqMszXG0mU3VjRM RpbmctbGVm zZpwIJ0aKAPivqubHABswC 7jPHSkO5z8DwYmBbG9MXjl F1KxBYQbwptjIi85sB4oKx JzXpU1BCgk J3DlohA7SMLltHXlHNzpPM F1L23fe2Z3AIJpZZImHIC3 cAK3yU2qlMrvtcfjaSFxoT sgdmVydGlj KKihKVjhX294MZSuxNdfRk NvZGluZyBEYXRlOiAgMDkv MDcvMjAyMzwvdGQ+PHRkIH C7lTnqYAUj yDElGFduVh3nyTtolGepRT 1rRZEbgonzPEEadH8yEMRy oXMmtNieNE0rNNAvhcszv4 60CrDkGQW2 DQLziMNzC8XvbG9bDkPfIE OuMPOdP8NhhKTzPGktJ368 VDneHoO9TLGhadHkA6SdAY FsaWduOiB0 p9L0Lb0Ht7HxrxceU0EybY RgGmLuAjlaRLx4P7JgNrst dHI+JP98PRIoXB38OYd3BS I8aEkyOAjd ATMuX6YasA2kJoQpCTNmFS RkOyc+PHRhYmxlIHdpZHRo HFhzBPLsRbUawBzwEO7pQh 9yZGVyLWNv hDnnqNMgMiBji4ygLPNyTV faGW7ceMrsU6NvgAV8OIAu x4k2Wa47T92kM3OmtUV+PG JucJQ4zMA7 eM4yBvKnQiE4MAdrC054Mj MomLKnCbhkm5scf4wtrNc7 LhI9UPZvgkXwnHsiTXI0i6 MlHd04F38y IHdpZHRoPSIxNSUiIHZhbG qkyy3njS5uWo3+PGNvbCB3 wJY7bP5gOiHyEdD1KMofK8 49InRvcCIv Ujnrs5rkg6cqeAk1GvGmQI FrwqRpaWdzDPG6k2MwSf07 I2WlaOpbx4TeVua7db36pR Hyz0E4nIG9 R6XtMZVqiqymvHFmbEfiFU 7lPKRmscdfEKUfvT4iDEUc J0k3XxLvRzM3TFxzV6Qxmn R1IOYqtDMp LJXyiDJMzK2lyqrhv7ozbj gpQvYjKVGmYWm6OQl8IOIr xHbpUgXbFZF9IpI2GGC8bK BxjJ3xlXqw hdcveC9hNzo+VKX5zIFofI IVJP2vKhxluIL+PHRkIHN0 iDevSKqqZGGhbN2vPKEwD4 q7QtDqLnK6 KRjbP1DvbsS5WYYzmPWwPI TsgFKQqZ0qmjnxg9jszxpv XqPaTYZlONg8EGn8XFHlcT duOiBsZWZ0 EwK2TSX5kNJcfX8dwCkjxz apsY1wGso+QmlydGggRGF0 MJc3R7GhDeq1ICFsfDtvTJ 0ncGFkZGlu Dd3bwYhqeXjtWB4fOJHlbr sxz604RaUrw3feMGUnfNCx NDjtFFK3O97kp4B5UJNnLC VqVKJ2xSA6 hM1ydLniosnepCDdxUqssy RtxNywIFkqBVtyM673RSVa yMlsOoRlVLu2J2CpBqh1GO HsgLmxNQ1g uIMyJJrzKx9tcDccfJnpTU 2wLCHwmckbc818FnKse6df WUUbeKXzEIlnMDN8V30ly8 S6HZIlMGCj PNS6sMV3aK9nbMzusuibjE VmdDsgdmVydGljYWwtYWxp C802QXRzuXqpPeHstBt3J4 CdKzy7MPUk zPzkTI6mfNClOPqcUa8tgN lebJrlCH2gETTxxvbrc043 KpInw9irYXJenHMkWSchSG V0M78si3I4 LSLaQFGhLQG0kVO2hU9dfA lnbjogbGVmdDsgdmVydGlj YYjdFAbcK760XZXleGlpGl BhdGllbnQg KBilYTd3A8QsSbkkkUQ+PC 01CNIeEE12rHXoyKNal1bs rVj5BvOsBGYoUCP5oUjuHT qtt5KjTLDz A47fdSToi7E2DMTldRambI XyMsHdoFW3bM0pPVumqdub i5jbvnkhQtjhy9mghz24vZ 77F83cDSak ZHRoPSIzMCUiIHZhbGlnbj 9bjE5yBv0+AILbuUP0bTV8 aA1cXNHjCqK3TKrkQ199Vx RvcCIvPjxj i4gwi4kfmWa5ZrH1IGTymv OjvOusDSW6w3BvTy96Z28r IHdpZHRoPSIyMCUiIHZhbG csgv0ymD5x Ii8+JIFaeTI5nYK4cU3iHw FuUmE9PVwdR622QuBvaPZx HhfoV66zT5BtwQG+PHRyPj p5VBKioJqc HT7edGGvJLybVp3iUKB9Yh AoEzPpWHbyL3AnTYIrijqm gunpzHN1YGMdDDOebK95Yn 9udDogMTBw iNILrZ6bfvvpk3szuypgOo VmELIvHSv1VLn0TTMzuPuw YeYdHLC9DoN6KXN6xZCdvO 1hbGlnbjog iQ5iQ6NgBAJqtzofDh98kZ 3wMjInJzD3KKnwRxc+Uk9T LFkyWP4FHzGBQPkZZMTLYJ wvdGQ+PHRk HKX1tSoqUFxrRJZuoN8oFB HoC8x5LlEwCbO1JEtnA0Nm LEPnuovdWg80qP8nJhBkVq V1PMxhC3Yr fjN1HUYlhBJwKFeiDEK1E3 3rc9I8IFFhWEEpCVJ3wAF2 sY4lmSetqwptdUNfgMkwat VydGljYWwt UAbqP925NGRwiEfqMzWxXv I3WxU4ATq2P1XwMst2OPTt kDneXM1fyAVfWQvxAr4rsQ rgdPgtEW4q GIZgqjgwKUHpkT8hTOYulV CsdKsfSI1wPYQtyihhv789 UfTmZPR6SSKzbRHdL3TscO 9yOiAjMDAw ESWxN6FonSBhPDjbM901BN wsXgN7OXGpwzCdE6IlZDTw nRdkXsX6z1I4Ap2vEXSUVJ FyczwvdGQ+ YNZcEHX3fEmcEEnrHGCjpJ 9oBGNuC9l8SvRoEcA6VArl K6VlXXGgewpnYf35tU7rUw JvNhX8YDzg B3NehwJ1PDZktLHeHXznHN Z4N22wl7Y5RLVuBOYfVOE9 xGM8pT0wwCzfrhxynKRadH sgdmVydGlj SXqbGHclQ685AZOnqAhzLu ZFTUFMRTwvdGQ+PHRkIHN0 iPzhTIuvCTImsU4gLNBmC7 i2QjKtGkE6 HCrhU4RgIBXmupkaVk81kD 8rRfBhZrJ7HKmqQ1NjunK0 BJThdJBsFSldSWZ5A64tl6 A4TPNpOWUl LNU0kNE5vY9eoHofsrnwuY VmdDsgdmVydGljYWwtYWxp X945XMHpbFuiEz7KLS15ZU 67B9OvItav dGFibGU+PHRhYmxlIHdpZH LkSQavABUnIeSetIlcFZ6o Rv5nUNOkVMBbgNsxdGBtWi Ifx9itETEx KJedZK6ryVuuA0SyfSY3MC Vid7g6Ye66N07mK0IqqCW+ CXUnrGL7fMQ9zX0aFbDdXi P5SIxrL764 LlMtaTBeWqmaa9mzc6zloT r3QfBvOBUmujMmmQdtOQN5 d6PqNw01I82oCWwbJDFhFS IyMCUiIHZh aJjllq2wwV1gDy6+PGNvbC X3cHO6nP0qNwWfWgA8ZIey D358FtBjrMJnRchoT76tF7 JvdXA+PHRy Gsz5KXYpwDkmHE2fyMJrGL dsNr5aCHF9RbDxQoPaWUyo D1MvDGUegkwwozwamYM5AW ZcWEAlzT55 Cw3kvObaDr3vOEBdPZH6RI PipFHaY6AfhL9wLgGcVOPb KLHlI9NuaSKeVMqdT687CB kjUzP0BOKe ncWnI2CwDLWomDyiWfY9y3 T1Iv1DsZidlHAbGM4rTdCm ABh3R7BeIqu5VWGzvNooAP 0ncGFkZGlu Ir6inXlneOfdSN7vLQGbzr ebu491XqPmk8vqIZEluDOz XNjnSEU6P54oa4T0KPTmQT OzEXM5vKN6 fF5mgTsoyrdwrYGelKxicw LqxPuuYOurVMjdF778SXLg zMfgUbYANot4L0FnVns4LF LvsXanVV6d gPLlMFieOf4enXfvyTfiPR 0sFTHljguqd578ZvJmz6xd NQKepALcBEbeGQB0R72wo5 S6UQZkUYWr ZBC6iWE3fO0yeEnvwqfhcR VmdDsgdmVydGljYWwtYWxp A651NNUimHthXz6JNmw4L1 GiYyx5XCMr sPsbTX0zyFDyOCsoSg5caE fhfRkdEI7hLMOgovanu460 MyGqe4dcGDAylFXjCTilUJ L1R45co4A0 XZVvVQBfTLY5kHP4cY2kqQ lnbjogbGVmdDsgdmVydGlj NGbjEZkvD664GXSfhVnpSl BheWVyOjwv dGQ+NF94yb29L9DgDitmPo d4EAZmJFR5sZG3wF5cLAUi ZHegf2M5gUL4N9RyjtJhqs 1yt4ilHNMl ZTo (more content not included)... [facility] Consent Formson 05-23-2023 Consent Forms [id number]#1.0 [facility] Dis[facility] Instructions [id number] [facility] ED Clinical Summary [facility] ? Urgent Care [address] [place], [place] [id number] Clinical Summary PERSON INFORMATION Name: JESUS PRADHAN Age: 37 Years Sex: FEMALE : 1985 MRN: Acct#: Visit Reason: UC - Elbow Injury; LEFT ELBOW PAIN/INJURY Arrival: 05/22/2023 10:27:29 Discharge: 05/22/2023 11:45:00 LOS: 000 01:18 Check In: 05/22/2023 10:27:29 Checkout: 05/22/2023 11:45:00 Address: [address] [place] [address] PCP: Provider, None PROVIDER INFORMATION Provider Role [...] verbalizes understanding of instructions given Comment: Normal [facility] ED Patient Summaryon 023 ED Patient Summary [facility] ? Urgent Care [address] [place] [address] PATIENT DISCHARGE INSTRUCTIONS Patient Information Name: JESUS [...] by your health care provider. ? Take knki-naz-njriloq and prescription medicines only as told by [...] get worse. (more content not included)... Normal [facility] Urgent Care Note- Provideron 05-22-2023 Urgent Care Note- Provider Patient: JESUS PRADHAN Age: 37 years Sex: FEMALE : 1985 Associated Diagnoses: Sprain of left elbow Author: Dean Soni PA-C History of Present Illness OCCUPATIONAL HEALTH FOLLOW-UP Date of injury: 05/14/23 Claim #: Employer: [employer] Mechanism of Injury: Slipped walking down an embankment, catching herself with her left arm outstretched. Diagnosis: Left elbow sprain This is a 37 year old here today with concerns of persisting left elbow pain after a fall at work on 05/14/23. She works for [employer] and was out in the field walking [...] and Plan Diagnosis Sprain of left elbow ([id number] S53.402A, Discharge, Medical) Plan Condition: Stable. Disposition: [...] 05/22/2023 11:30 EDT] Dean Soni PA-C Normal [facility] Recordon 023 Urgent Care Record [facility] ? Urgent Care [address] [place] [address] PATIENT DISCHARGE INSTRUCTIONS Patient Information Name: JESUS PRADHAN Age: 37 Years Date of : 1985 Reason For Visit: UC - Elbow Injury; LEFT ELBOW PAIN/INJURY Arrival Time: 05/22/2023 10:27:29 Primary Care Physician: Provider, None Attending Physician: Dean Snoi PA-C Comment: Visit Diagnosis: Diagnoses This Visit Sprain of left elbow (S53.402A) UC - Elbow Injury ([id number]) If you received any narcotics, sedation, or [...] and treatment you received today in the [facility] were for an urgent problem and are not intended as complete care. It is important for you to follow up with a doctor, nurse practitioner, or physician?s cafeteria assistant for ongoing care. If your symptoms [...] so we can reach you if necessary. [facility] has provided you with a complete list of medications post discharge. Please inform your buffing turner and counter/provider of your visit and for further instruction [...] feeling a te (more content not included)... [facility] XR Elbow Complete Lefton XR Elbow Complete [...] MD 05/22/23 11:17 a Technologist: Dirk JAVIER [facility] Pap IG, rfx Aptima HPV, rfx 16/18,45on 01-29-2023 . . Normal [facility] Comment on above: Result Comment: Perf ormed at: WB Performed By: #### P APHR2A #### [facility] [address] [address] [address] Amari Diego DIAGNOSIS: Comment Abnormal [facility] Comment on above: Result Comment: EPIT HELIAL CELL ABNORMALITY. LOW GRADE SQUAMOUS INTRAEPITHELIAL LESION (LSIL). Performed at: WB Performed By: #### P APHR2A #### [facility] [address] [address] [address] Amari Diego Electronically signed by: Comment Normal [facility] Comment on above: Result Comment: Silvia Kumar MD, Pathologist Performed at: WB Performed By: #### P APHR2A #### [facility] [address] [address] [address] Amari Diego HPV Aptima Positive Abnormal Negative [facility] Comment on above: Result Comment: This nucleic acid amplification test detects fourteen high-risk HPV types (16,18,31,33,35,39,45,51,52,56,58,59,66,68) without differentiation. Performed at: =G Performed By: #### P APHR2A #### [facility] [address] [address] [address] Amari Diego HPV Genotype Reflex Comment Normal [facility] Comment on above: Result Comment: Crit eria not met, HPV Genotype not performed. Performed at: WB Performed By: #### P APHR2A #### [facility] [address] [address] [address] Amari Diego Methodology: Comment Normal [facility] Comment on above: Result Comment: This liquid based ThinPrep(R) pap test was screened with the use of an image guided system. Performed at: WB Performed By: #### P APHR2A #### [facility] [address] [address] [address] Amari Diego Note: Comment Normal [facility] Comment on above: Result Comment: The Pap smear is a screening test designed to aid in the detection of premalignant and malignant conditions of the uterine cervix. It is not a diagnostic procedure and should not be used as the sole means of detecting cervical cancer. Both false-positive and false-negative reports do occur. . Performed at: WB Performed By: #### P APHR2A #### [facility] [address] [place] [address] Dr. Amari Diego Pathologist Provided ICD10 Comment [facility] Comment on above: Result Comment: R87. 612 Performed at: WB Performed By: #### P APHR2A #### [facility] [address] [place] [address] Dr. Amari Diego Performed by: Comment Normal [facility] Comment on above: Result Comment: Marce Ford, Sheet Cutting Operator (ASCP) Performed at: WB Performed By: #### P APHR2A #### [facility] [address] [place] [address] Dr. Amari Diego Recommendation: Comment Abnormal [facility] Comment on above: Result Comment: Sugg est follow up as clinically appropriate. Performed at: WB Performed By: #### P APHR2A #### [facility] [address] [place] [address] Dr. Amari Diego Specimen adequacy: Comment Normal [facility] Comment on above: Result Comment: Sati sfactory for evaluation. Endocervical and/or squamous metaplastic cells (endocervical component) are present. Performed at: WB Performed By: #### P APHR2A #### [facility] [address] [place] [address] Dr. Amari Diego PAP ACOG PANEL 2: 30 to 65on 08-22-2022 . . [facility] Comment on above: Result Comment: Perf ormed at: WB Performed By: #### 4 [id number] #### [facility] [address] [place] [address] Dr. Amari Diego Age Gdln ACOG Testing 30-[address] [facility] Comment on above: Performed By: #### 4 [id number] #### [facility] [address] [place] [address] Dr. Amari Diego DIAGNOSIS: Comment Abnormal [facility] Comment on above: Result Comment: EPIT HELIAL CELL ABNORMALITY. LOW GRADE SQUAMOUS INTRAEPITHELIAL LESION (LSIL). Performed at: WB Performed By: #### 4 [id number] #### [facility] [address] [place] [address] Dr. Amari Diego Electronically signed by: Comment Normal [facility] Comment on above: Result Comment: Armaan Muro MD, Pathologist Performed at: WB Performed By: #### 4 [id number] #### [facility] [address] [place] [address] Dr. Amari Diego HPV Aptima Positive Abnormal Negative [facility] Comment on above: Result Comment: This nucleic acid amplification test detects fourteen high-risk HPV types (16,18,31,33,35,39,45,51,52,56,58,59,66,68) without differentiation. Performed at: =G Performed By: #### 4 [id number] #### [facility] [address] [place] [address] Dr. Amari Diego HPV Genotype Reflex Comment Normal [facility] Comment on above: Result Comment: Crit eria not met, HPV Genotype not performed. Performed at: WB Performed By: #### 4 [id number] #### [facility] [address] [place] [address] Dr. Amari Diego Methodology: Comment Normal [facility] Comment on above: Result Comment: This liquid based ThinPrep(R) pap test was screened with the use of an image guided system. Performed at: WB Performed By: #### 4 [id number] #### [facility] [address] [place] [address] Dr. Amari Diego Note: Comment Normal [facility] Comment on above: Result Comment: The Pap smear is a screening test designed to aid in the detection of premalignant and malignant conditions of the uterine cervix. It is not a diagnostic procedure and should not be used as the sole means of detecting cervical cancer. Both false-positive and false-negative reports do occur. . Performed at: WB Performed By: #### 4 [id number] #### [facility] [address] [place] [address] Dr. Amari Diego Pathologist Provided ICD10 Comment Normal [facility] Comment on above: Result Comment: R87. 612 Performed at: WB Performed By: #### 4 [id number] #### [facility] [address] [address] [address] Amari Diego Performed by: Comment Normal [facility] Comment on above: Result Comment: Ilya Nelson, Sheet Cutting Operator (ASCP) Performed at: [facility] Performed By: #### 4 [id number] #### [facility] [address] [address] [address] Amari Diego Specimen adequacy: Comment Normal [facility] Comment on above: Result Comment: Sati sfactory for evaluation. No endocervical component is identified. Performed at: WB Performed By: #### 4 [id number] #### [facility] [address] [place] [address] Dr. Amari Diego Vital Signs Date Time Vital Sign Value Performing Clinician Faci lity 10-23-2023 13:40-0500 Body mass index (BMI) [Ratio] 34.26 kg/m2 Pushpa Susanne DO Work Phone: [facility] 10-23-2023 13:40-0500 Body weight 105.23 kg Pushpa Susanne DO Work Phone: [facility] 10-23-2023 13:40-0500 Diastolic blood pressure 86 mm[Hg] Pushpa Susanne DO Work Phone: [facility] 10-23-2023 13:40-0500 Systolic blood pressure 130 mm[Hg] Pushpa Susanne DO Work Phone: [facility] Healthcare Encounters Encounter Date Encounter Type Care Provider Facility Start: 10-23-2023 End: 10-23-2023 ambulatory PUSHPA SUSANNE Not Available Start: 10-23-2023 End: 10-23-2023 Patient encounter procedure Pushpa Susanne DO Work Phone: [facility] Comment on above: Vaginal irritation Start: 10-23-2023 End: 10-23-2023 ambulatory Pushpa Susanne Work Phone: [facility] Work Phone: Start: 10-23-2023 End: 10-23-2023 Departed Referred Pushpa Skinner Work Phone: [facility] Start: 09-26-2023 End: 09-26-2023 ambulatory PUSHPA SUSANNE Not Available Start: 08-19-2023 End: 08-19-2023 ambulatory PUSHPA SUSANNE Not Available Start: 05-22-2023 End: 05-22-2023 ambulatory None Provider Facility:[facility] Start: 01-21-2023 End: 01-21-2023 ambulatory NONE LISTED REQUEST Facility: Start: 08-15-2022 End: 08-15-[address] NONE LISTED REQUEST Facility: Plan of Treatment Date Care Activity Detail Author Start: 02-24-2024 End: 02-24-2024 Patient encounter procedure 02/24/2024 2:00 PM EDT Procedure Visit [facility] [address] [place] [id number] SusannePushpa, DO [address] [place] [address] [facility] Payers Date Payer Category Payer Self-pay 2023 Unknown [employer] [id number] 2023-Present [address] [place] [address] [id number] 1985 Unknown [id number] 1985 Unknown [id number] 1985 Unknown [id number] 1985 Unknown [id number] 9 1985 Unknown [id number] 9 1985 Unknown [id number] 9 1957 Self-pay [id number] 1957 Unknown [id number] Unknown [employer] [id number] Social History Date Type Detail Facility Tobacco smoking status NHIS Unknown if ever smoked [facility] Start: 1985 Sex Assigned At Female F [facility] Start: 05-15-2023 Tobacco smoking status [facility] Smokes tobacco daily [facility] History of [...] Healthcare History of Present illness Narrative 10-23-2023 Lauritarenetta Jin, JOHN - 10/23/2023 1:30 PM EST Note Date [...] History: Diagnosis Date Cervical dysplasia 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 Exam conducted with a seam checker present. Vitals: Estimated body mass index is [...] time to take affect. punch biopsy used, berry picker machine operator and scissors used to remove affected area. Placed in formalin and sent to pathology. Post-procedure instructions given. Pt to apply clobetasol cream to affected area daily for one month. Documented by Laurita Jin LPN on behalf of: Pushpa Skinner DO documented in this encounter [facility] Clinical Note 05-22-2023 Note Date & Type [...] by your health care provider. ? Take zokd-ddj-fvphurt and prescription medicines only as told by [...] icing, applying pressu (more content not included)... [facility] Evaluation note Note Date & Type Note Facility Evaluation note [facility]: Evaluation [facility] Note Date [...] DATE CREATED AUTHOR AUTHOR'S ORGANIZ ATION 05/24/2023 [facility] l DATE CREATED AUTHOR AUTHOR'S ORGANIZ ATION 10/24/2023 [facility] EPIC DATE CREATED AUTHOR AUTHOR'S ORGANIZ ATION 10/28/2023 [facility] Care Teams (unrecognized sec tion and content) Team Status: Inactive Member Role Status Dates Pushpa Skinner Attending Provider Active Start: Tamela huston 2023 End: October 23, 2023 Goals (unrecognized [...] BE BASED ON THE PRIMARY CLINICAL RECORDS. [facility] [employer] [facility]. provides no warranty or guarantee of the accuracy or completeness of information in this document.
[2024-04-22 06:28] LABS: Basophils Absolute Auto 0.1 10^3/uL (0.0-0.1); Basophils Percent Auto 0.7 % (0.2-2.0); Eosinophils Absolute Auto 0.2 10^3/uL (0.0-0.7); Eosinophils Percent Auto 1.5 % (0.9-7.0); Hematocrit 40.6 % (36.0-48.0); Hemoglobin 13.3 g/dL (12.0-16.0); Immature Granulocytes Abs Auto 0.04 10^3/uL (0.00-0.03); Immature Granulocytes Pct Auto 0.4 % (0.0-0.5); Lymphocytes Absolute Auto 2.2 10^3/uL (1.2-3.8); Lymphocytes Percent Auto 22.1 % (20.5-60.0); Mean Corpuscular HGB Conc 32.8 g/dL (29.9-35.2); Mean Corpuscular Hemoglobin 29.8 pg (26.7-34.0); Mean Corpuscular Volume 90.8 fL (81.0-99.0); Mean Platelet Volume 9.4 fL (9.5-13.5); Monocytes Absolute Auto 0.7 10^3/uL (0.3-0.8); Monocytes Percent Auto 7.4 % (1.7-12.0); Neutrophils Absolute Auto 6.7 10^3/uL (1.4-6.5); Neutrophils Percent Auto 67.9 % (43.0-75.0); Platelet Count 283 10^3/uL (150-450); Red Blood Count 4.47 10^6/uL (4.20-5.40); Red Cell Distribution Width 12.5 % (11.0-15.0); White Blood Count 9.9 10^3/uL (4.0-11.0)
[2024-04-22 06:56] LABS: HCG Quantitative <1 mIU/mL
[2024-04-22] MEDS: LACTATED RINGER'S SOLUTION 1,000 ML 50 ML IV (07:01)
[2024-04-22] MEDS: CEFAZOLIN SODIUM/DEXTROSE,ISO 2 GM/50 ML PIGGYBACK IV ×2 (07:35→13:05)
[2024-04-22] MEDS: FAMOTIDINE/PF 20 MG/2 ML VIAL IV (07:38)
[2024-04-22] MEDS: SCOPOLAMINE 1 MG/3 DAYS TRANSDERM PATCH 1 PATCH TD (07:39)
[2024-04-22] MEDS: LACTATED RINGER'S SOLUTION 1,000 ML 75 ML IV (08:42)
--- NOTE | 2024-04-22 09:40 | P.ON_ITS ---
Brief Operative Note Date of procedure: 04/22/24 Pre-op diagnosis general: menorrhagia,pelvic pain, dyspareunia, lt ovarian cyst Post-op diagnosis: same as pre-op Procedure: NAME OF PROCEDURE: ? Robotic assisted laparoscopic hysterectomy with cystoscopy, bilateral salpingectomy, lt ovarian cystotomy PROCEDURE:? The patient was taken back to the operating room, where she was prepped and draped in the normal sterile fashion after being placed in the dorsal lithotomy position.? Patient?s anesthesia was found to be adequate.? Surgical timeout was performed using two patient identifiers.? SCDs were on and in place.? Two grams of Ancef were given prior to the surgery.? Sterile Kelley catheter was inserted.? Standard size VCare was secured to the uterine cervix and the surgeon changed gloves.? Attention then was turned to the patient's abdomen, where a supraumbilical incision was then made.? Two S retractors were used to identify the patient?s fascia.? The fascia was then tented up using Nely clamps and the patient?s fascia was incised sharply.? Patient?s abdomen was identified and entered bluntly.? The patient had the trocar placed and a pneumoperitoneum was obtained.? Approximately 4 liters of CO2 gas was used.? The camera was then placed through the trocar.? At this time, two robot trocars were placed in the patient?s left and right side, two hand widths from the midline, and this was placed under direct visualization.? The patient?s tube on the right side was tented up and the vessel sealer was then used to come across the mesosalpinx, and this was carried down to the uterine ovarian ligament.? The vessel sealer was carried down serially to the broad ligament, to the area of the bladder flap, which was then created anteriorly, and the uterine arteries were skeletonized and sealed using the vessel sealer.? The colpotomy was made using the monopolar cautery on cut, and this was carried circumferentially, posteriorly to anteriorly, until the uterus was amputated.? The specimen was then removed intact through the vagina, without difficulty.? The vagina was then closed using two running V-Loc in a non-lock fashion.? The robot was undocked.? The abdomen was desufflated.? The skin defects were closed using 4-0 Vicryl.? Please note, the fascia was closed using 0 Vicryl.? Sponge, lap and needle counts were correct x2.? Patient was taken to recovery room in stable condition.? The patient was awakened by Anesthesia first.? Patient tolerated procedure well.??Please note left ovarian cystotomy was performed using the vessel sealer Anesthesia: ROSAS Surgeon: Ariel [employer] Change Attendant: Mariah Ambriz Estimated blood loss (mL): 50 Pathology: other (uterus and tubes) Condition: stable Disposition: PACU Urinary Catheter Management Urinary Catheter Management Urethral: Cath placed during this visit: no
--- NOTE | 2024-04-22 10:28 | PC.NURSE ---
Scant bloody drainage on peripad
[2024-04-22] MEDS: LACTATED RINGER'S SOLUTION 1,000 ML 125 ML IV (10:37)
--- NOTE | 2024-04-22 11:02 | PC.NURSE ---
scant drainage on peripad
[2024-04-22] MEDS: OXYCODONE HCL/ACETAMINOPHEN 5MG/325MG 1 TAB PO (13:22)
[2024-04-22] MEDS: KETOROLAC TROMETHAMINE 30 MG/ML VIAL IVP (15:02)
[2024-04-22 16:18] LABS: Hematocrit 37.2 % (36.0-48.0); Hemoglobin 12.3 g/dL (12.0-16.0); Mean Corpuscular HGB Conc 33.1 g/dL (29.9-35.2); Mean Corpuscular Hemoglobin 30.2 pg (26.7-34.0); Mean Corpuscular Volume 91.4 fL (81.0-99.0); Mean Platelet Volume 9.6 fL (9.5-13.5); Platelet Count 288 10^3/uL (150-450); Red Blood Count 4.07 10^6/uL (4.20-5.40); Red Cell Distribution Width 12.7 % (11.0-15.0); White Blood Count 16.5 10^3/uL (4.0-11.0)
[2024-04-22 16:46] LABS: Band Neutrophils Absolute 0.3 10^3/uL (0.0-0.3); Lymphocytes Absolute Manual 0.33 10^3/uL (1.20-3.80); Monocytes Absolute Manual 0.49 10^3/uL (0.30-0.80); Segmented Neut Absolute Manual 15.34 10^3/uL (1.4-6.5)
== END 2024-04-22 17:41 | disposition home or self-care (01) ==
LOC: SURGOUT 09:44 → MS 11:06
PROVIDERS: Visit Provider Obstetrics & Gynecology
PROC: (CPT 840; principal; 2024-04-22 07:30)
DX: N92.0 Excessive and frequent menstruation with regular cycle (principal); R10.2 Pelvic and perineal pain; N94.6 Dysmenorrhea, unspecified; N94.10 Unspecified dyspareunia; N83.202 Unspecified ovarian cyst, left side; Z87.891 Personal history of nicotine dependence; Z98.51 Tubal ligation status; K21.9 Gastro-esophageal reflux disease without esophagitis
CPT/HCPCS: 49322; 58571; 36415; 84702; 85007; 85025; 85027; 86850; 86900; 86901; 88307; 94667; J0360; J0690; J1100; J1170; J1290; J1885; J2250; J2405; J2704; J2710; J2765; J3010

== ENCOUNTER 2025-06-08 19:24 | Outpatient (REF) | payer SELFPAY ==
--- OUTSIDE RECORDS SUMMARY | 2025-06-08 19:28 | XMS_ITS | CCD ---
Author Organization [facility] Care Team Providers Care Lead Ios Developer Name Role Phone REQUEST, DR NONE LISTED [...] Soni Attending Unavailable Dean Soni Admitting Unavailable SusanneJersony Attending Provider [phone] Unavailable Primary Care Provider Unavailabl e Susanne, DO Pushpa Attending Provider Susanne, Pushpa Admitting Unavailable Susanne, Pushpa Attending Unavailable Susanne, Pushpa Attending Unavailable Susanne, Pushpa Admitting Unavailable SUSANNE, PUSHPA Attending Unavailable SUSANNE, PUSHPA Attending Unavailable SUSANNE, PUSHPA Attending Unavailable SUSANNE, PUSHPA Attending Unavailable SUSANNE, PUSHPA Attending Unavailable VERONICA LI Attending Unavailable VERONICA LI Attending Unavailable Veronica Lee Unavailable Allergies Allergy Classification Reported Allergen(s) Allergy Type Date of Onset Reaction(s) Facility (1 source) Sulfonamides (Antibiotic) Drug allergy (disorder) 10-04-19 17 [facility] Repository (1 source) No Known Medication Allergies; Translations: [No Known Medication Allergies] Propensity to adverse reactions to drug (disorder) [facility] Repository (7 sources) Sulfamethoxazole / Trimethoprim Drug Allergy 09-20-19 18 Unknown [facility] Medications Current Medications Medication Drug Class(es) Dates Sig (Normalized) Sig (Original) clobetasol propionate 0.5 mg/ml topical cream (1 source) Corticosteroid Start: 09-26-2023 End: 10-26-2023 clobetasol (Temovate) 0.05 % cream Indications: Vaginal irritation Apply 1 application topically in the morning. 45 g 1 09/26/2023 10/26/2023 Active FLUoxetine 10 mg oral capsule (4 sources) Serotonin Reuptake Inhibitor Start: 05-16-2023 End: 06-03-2024 take 1 capsule by mouth in the morning FLUoxetine (PROzac) 10 MG capsule Indications: Anxiety associated with depression Take 1 capsule (10 mg) by mouth in the morning. 30 capsule 11 05/16/2023 06/03/2024 Discontinued Problems Active Problems Problem Classification Problem Date Documented Da te Episodic/Chronic Other aftercare (2 sources) Surgical follow-up; Translations: [Encounter for follow-up examination after completed treatment for conditions other than malignant neoplasm] 06-03-2024 Episodic Other screening for suspected conditions (not mental disorders or infectious disease) (4 sources) Encounter for screening for malignant neoplasm of cervix; Translations: [ENC SCREENING MALIG NEOPLASM CERV] Onset: 01-21-2023 Episodic Past or Other Problems Problem Classification Problem Date Documented Date Episodic/Chronic Cancer of cervix (8 sources) Low grade squamous intraepithelial lesion on cytologic smear of cervix (LGSIL); Translations: [Atypical squamous cells of undetermined significance on cervical Papanicolaou smear] Onset: 01-24-2023 09-26-2023 Episodic Immunizations and screening for infectious disease (1 source) Encounter for screening for human papillomavirus (HPV); Translations: [ENC SCREENING HUMAN PAPILLOMAVIRUS] Onset: 08-18-2022 Episodic Other female genital disorders (8 sources) Vaginal irritation; Translations: [Other specified noninflammatory disorders of vagina] Onset: 09-26-2023 10-17-2023 Episodic Results Test Name Value Interpretation Reference Range Facility [facility] 04-22-2024 L Specimen: [id number] Received: 04/22/24 Status: BIPIN Jensen Num: [id number] Spec Type: Surgical Subm Dr: Pushpa Skinner Tissues: A Uterus w/ or w/o tubes ovaries except neoplastic or prolap (UTERUS, CERVIX Procedures: HE/8, Gross/Micro L5 Age/ Patient Sex Location Account Attending Physician Jesus Pradhan 38/F LABELL [id number] Pushpa Skinner SPEC NUM: [id number] RECD: 04/22/24 STATUS: BIPIN LORI NUM: [id number] GRACIE: 04/22/24- [facility] DR: Pushpa Skinner ENTERED: 04/22/[address] [facility] [address]: VIKASH TYPE: Surgical DEPT: DANIELLE MOSQUEDA ENTERED BY: [id number] RECV BY: [id number] ORDERED: HE/8, Gross/Micro L5 ORDERED: HE/8, Gross/Micro L5 Pathological Diagnosis Uterus and cervix and bilateral fallopian tubes, total hysterectomy with bilateral salpingectomy: -Cervix with focal chronic ablation erosion of ectocervical and endocervical mucosa, and focal nabothian microcysts without dysplasia -Corpus with slightly disordered proliferative endometrium of the mid phase type without hyperplasia or atypia -Incidental focal post ablation change of endometrial mucosa with incidental surrounding stromal hemorrhage in superficial mucosa -Fimbriated bilateral fallopian tubes without significant histopathological changes, except at least 1 FILSHE clip and the rare small Walthard cyst are noted on tube #1 Clinical Information Menorrhagia, pelvic pain, dyspareunia, dysmenorrhea. Gross Description Received in formalin, labeled with the patient's name, date of and uterus and cervix, bilateral fallopian tubes with 2 filshe clips is a 80.7 g uterus with attached cervix and detached bilateral fallopian tubes, measuring 4.5 cm cornu to cornu, 7.8 cm fundus to os, 4.2 cm anterior-posterior and covered by unremarkable duncan-pink serosa the roughened brown cervix is 3.4 cm long and 2.9 cm wide, leading to a 3.2 x 3.0 cm ectocervix with a 0.6 cm wide os. The 2.5 cm long and 0.3-0.5 cm wide endocervical canal leads to a ---- Specimen: [id number] Received: 04/22/24 Status: BIPIN Jensen Num: [id number] Spec Type: Surgical Subm Dr: Pushpa Skinner Tissues: A Uterus w/ or w/o tubes ovaries except neoplastic or prolap (UTERUS, CERVIX Procedures: Gross/Micro L5 ---- Patient: Jesus Pradhan [id number] (Continued) ---- Specimen: [id number] Received: 04/22/24 (Continued) Gross Description (Continued) Signed (signature on file) Jennifer Diego MD 04/27/24 1603 ---- Specimen: [id number] Received: 04/22/24 Status: BIPIN Jensen Num: [id number] Spec Type: Surgical Subm Dr: Pushpa Skinner Tissues: A Uterus w/ or w/o tubes ovaries except neoplastic or prolap (UTERUS, CERVIX Procedures: Gross/Micro L5 ---- Patient: Jesus Pradhan [id number] (Continued) ---- Specimen: [id number] Received: 04/22/24 (Continued) Gross Description (Continued) triangular endometrial cavity, 3.8 cm from fundus to internal os, and 2.4 cm from cornu to cornu. The soft, duncan 0.1 cm thick endometrium overlies a 1.6 cm thick duncan trabeculated myometrium. No nodules, discrete masses or cysts are present. Each undesignated fallopian tube is previously fragmented. Fallopian tube #1 measures 4.2 cm in length by 0.5 cm in diameter, contains a 1.2 x 0.4 x 0.3 cm metallic clip and a 0.3 x 0.2 cm paratubal cyst. No inscription is noted on the clip. Fallopian tube #2 measures 4.4 cm in length by 0.6 cm in diameter. Sectioning through each tube demonstrates an intact lumen lined by unremarkable duncan mucosa. Window Treatment Installer sections submitted as follows: A1: Anterior cervix A2: Posterior cervix A3?A4: Anterior endomyometrium A5?A6: Posterior endomyometrium A7: Fallopian tube #1 A8: Fallopian tube #2 TW Microscopic Description Microscopic examinations are performed CPT Codes 98678 ---- ---- Specimen: [id number] Received: 04/22/24 Status: RENATOAna Jensen Num: [id number] Spec Type: Surgical Subm Dr: Pushpa Skinner Tissues: A Uterus w/ or w/o tubes ovaries except neoplastic or prolap (UTERUS, CERVIX Procedures: HE/8, Gross/Micro L5 ---- Patient: Jesus Pradhan [id number] (more content not included)... Normal [facility] 10-23-2023 L Specimen: Received: 10/24/23 Status: BIPIN Jensen Num: [id number] Spec Type: Surgical Subm Dr: Pushpa Skinner Tissues: A VAGINA - biopsy (VAG BX) Procedures: HE/2, Gross/Micro L4 Age/ Patient Sex Location Account Attending Physician Jesus Pradhan 38/F LABELL [id number] Pushpa Skinner SPEC NUM: [id number] RECD: 10/24/23 STATUS: BIPIN JENSEN NUM: [id number] GRACIE: 10/23/23- SUBM DR: Pushpa Skinner ENTERED: 10/24/[address] [facility] [address]: Silvia Camarillo SPEC TYPE: Surgical DEPT: [...] in one cassette labeled A1. CPT Codes 46036 ---- ---- Specimen: [id number] Received: 10/24/23 Status: BIPIN Jensen Num: [id number] Spec Type: Surgical Subm Dr: Pushpa Skinner Tissues: A VAGINA - biopsy (VAG BX) Procedures: ROBE/Dionte Torres/Micro L4 ---- Patient: Jesus Pradhan [id number] (Continued) ---- Signed (signature on file) Yosi Gonzales MD 10/26/23 1021 [facility] Coding Summaryon 05-23-2023 Coding Summary HTMLBase 64 KcmixqgjBSv7aBj+PGhlYW Q+FJ3VMZPqP27tfRVgeF3u W8IFRGvSIdkcCJJOCQpGJn BflxSdDQ1tpVTeIZNn IC8+GK9tCPQwIgxbfZZry7 A7nZT4O15okl1vNKxfrYP8 NLJrIdDtnpinq4pzfUm3ZO cuNmluOyBt LWHklG70VDW6fK54Tp02lX UkjMWio4iveNt5NcTdUBWj TGZ7gOnwHEpeo8VkVQIbX7 6ocTFlr0U6 TCJstQcbeITsMyLfpJI2bS 9gSIkwzwtah9naupmyLpz1 gm29oSAsh8Q3tGS5E2Msae E6BPKxgMLr EtzppPSGjE3wrdzdw9aiii frDyXgXZUaOUa4DIc4ECSb wEvpXbBzMO75OTO7BEPycn ScV8EuWRNn wAufPsT1v8L6Ej2OV5RZZn esO7XLZFCIADanaGP+PC90 yh95I5CoBrykLkr7XEIcVE V9hIJ4aI7n ILMdKAsnd3P1zZD9D8Mbus Srmk7jn4tiQWOrIJqaQ66q fYZrf6Q0MVJqmFR9OGHrsE xaOqRlmK76 Oyc+MSYrmHyjd0LwKidjm9 zev3ddjJe9LrkgNKNzawLr oUjlNAR7v1PdQx0qDKErjJ Z8nGI3uY3b RhYoGoE8RXdxX251JmHepG XaKjlsZ71iJ7CqxME+PHRy Szi9HXWkrUynGJ8nV0KtYH RpbmctbGVm dYqdRU8yRTZaqvgrCPUizN 9cFVCkR4y9JlNkFtQ5HCbt W3JsYJEehemcNa92kG6tAz FlKaQ3IPdm V5MdhnL0KAXbwLHtBRpqOR P4F16wp8K8EUUhDWKeJOA4 bIK6uU7kbVdsetesbBYseI sgdmVydGlj DYozPLasM618URHdwOuiQc NvZGluZyBEYXRlOiAgMDkv MDcvMjAyMzwvdGQ+PHRkIH W8gGhwTPLd oRNnQVvdLr3coCbfpKzkPT 7yHWKdqsdaAQNonZ8kQJSm jIHanEctRP4zDBRdizdsg5 47ZoNmYLQ3 ZXQibMPuM3AotW3qLyUoLC FnLBDaN8PgeRHuQAorG371 OMhoHcY9NFCfgtQwV1KbBJ FsaWduOiB0 n6Y2Em2Dx7FyyxuaP0GciY KgOjVdMqdxNCs8Q5MaKotw dHI+WT08GLXfPO81VRc3JD G4zXciYAvo HKSoG3CtuY9bEoSpMEXnXD RkOyc+PHRhYmxlIHdpZHRo HLhuWHStKzAweJbmRS8iHw 9yZGVyLWNv nHwoqJJaKzCtm9hiHKMtIC kzEB4wdKyjW8IohWH3HCTg a9l2Sl13L42nM5BczFQ+PG OdjLQ9zKQ4 aE4rBoAfVoI6QUnfH936Nq IqoDRyEqois1msb0bplDj5 IbC6OCWrdsAnsKowFDM1o3 FcSz54E40e IHdpZHRoPSIxNSUiIHZhbG uucp8xwH6zVk7+PGNvbCB3 eQK9tC6pTwBaZhG4WBujX4 49InRvcCIv Bhxjw0wcp0fhhJx0QpSkHN WepiSaxBmmVLR6k0RnUn50 D8IamAfoo7GfEuz1rg46aU Yju5J4wXL6 F7JzGNWcvzhcmPDzyLmbYV 0rVYXwonhbKFNgfE3yAMCd M4d9MwFcJsG9HCkmQ4Omsi W2JGElgGOq ANKgxTDEmX1bklqqu0fuoi hxHjBkNNFjXHv6ZLm2PQSh dZyhWfNxQIO5UzT6WDF8yE TsiQ5xdUsx brbbjT1gRqv+BBF3mQVbtV YSHS4cPlimsVQ+PHRkIHN0 cRozQRqfBEGieO0qALQcN5 x2RdAfTnH2 KMklU7BjveX2HMIcqWOlBY GqcOKZvV4euoxzr0exxxkq KdXkVSYeJZi0SIl4HEBniD duOiBsZWZ0 CiG2QRN3fUMiuA0xrNyban batO6dJap+QmlydGggRGF0 TPo5D3VqVwk8MDXlxAztSU 0ncGFkZGlu At5hoMvcrRqiZB6fPTZghc mma964YdJxe8vtMPKuvQSv RGtaONI9K71vk5I1UYOqII QxMVZ6zZN9 aX7syMivbrlgdTCqxUbnhk VhhIjmRFpvFLwyC249QRSp bRqmStOqWLp5Y8OuLes1AF KtzBpsMJ2h dDKkVBnnDd3orNgauNhaXM 7kRNDgdfvxz605YsTmk6vo JHYaaWVdPOicPFM1D89dd2 P9VPSfIEBo VEP6mBQ2cI6urXifrylacW VmdDsgdmVydGljYWwtYWxp R458NFHlrHpvIpDlzLl5K4 KwUwf2QWSn wJflNK0wfOCaDKthKb1wtF wegTsgHT6eZGTxlfmpj149 HgPyu7gkMNZppITrBVriRU C8L42xu3G6 PIOpIYOgZTU7eZF6cR5mtL lnbjogbGVmdDsgdmVydGlj SMwuOMrnD735ENYcgBrmPa BhdGllbnQg MEeoWUo4L5UoJvhrqDF+PC 31NGPqPV18hOTryCHef5ns pGl6UhXdDTKjSLR5eJtxGI xqm4IwSIHn W26olWOhp7Q8DBFwwCkriF YtNcTisBG5dE2bMOjwzbep i9rtnyahBeiow5ketc10cE 00W83hQOau ZHRoPSIzMCUiIHZhbGlnbj 6rdA5dQe8+DDGuxVR7gIQ6 tI0eKJRgTkQ9CYexO127Jf RvcCIvPjxj t1kfr7lzvFb8FeY8GYAzhb StbYfrFLY9c7VgVk40A68x IHdpZHRoPSIyMCUiIHZhbG fbtc9roG9w Ii8+QYByxDE9xXF7iX9jSm HoEoE1XSmdV208GjHrgNXp ErpmA94mP4HhnYR+PHRyPj r5OJTbkPjv VO3syNGuNOueUr8sBTG9Mi PvPnSvKMhvS6DqUXOvfizt ljdsmHB5FSJfHTUuxV92Vh 9udDogMTBw xNPZlO5fzjeor4cmpfoqFy HzSDGqBEd0LVp6TSKqmDhb XnVlEBY4EoG9NFR3tCLsxO 1hbGlnbjog fS6iL3MqRFLajqdeIq68bQ 6uBdExEhG2SBakAoi+Uk9T STioEJ0PMtPAGOiSCFYGAC wvdGQ+PHRk GRF2aQfgBJgiDNRgyV2kKW UjB3r6SqHiVpN2GNsjU1Yx NMItkyqpNv37yT6aCuQyBy S9DEgeC3Ha lmL2QFQbcOXiIMhmJJL5Q6 4mu2V8BPYhBRFhYSB9sHV3 fZ9uzOpcsvwkiEIhpZacxx VydGljYWwt RFuhH506PPUeqMguRaFaSi Z3QqX7KCr0P5AmHki9RQOv gVizJO1xoUJnVGwqVa7osD jcxBuxNI3a QLVfiekiOSRkkD4pYZKpiM WnbIrxOY9mCPYcilood334 YnImNSV8LIYcqSYjO3FrjQ 9yOiAjMDAw GEWbY6UxzFRgGMrkV978TK uaYrG6JKZoaoZxA3QfWGZv sQzuCqU7s2T9Rq7yAAYDYB FyczwvdGQ+ YQKkNFO7lWntOFocYKRveQ 5kFGUaF0w0WzEbFtF3KTna Y2KbYPZluiqaXj78zI5iGy RcUiW0HHnm O4UcadC4EUXptFMpQJdnTB P9B15ld2Q1FHCgECVrWWG9 zBW3vD0ckUkfylkfpTMtvM sgdmVydGlj CSjuFBquA761JMUyvYivBu ZFTUFMRTwvdGQ+PHRkIHN0 bEdkVLmfEEPpfM5cTFUzD5 h3WvOvWjZ5 ZTcnK1YsHMDknduyWv03uW 2dGlVpWrI6CXhrU4KcnaS2 MYBasTDaOFqsDUF5G49aw1 K7POYhKZId FXR3uYP8oQ4zjJwllzaaqT VmdDsgdmVydGljYWwtYWxp X731OCBavUnxJo6TYD81LC 22B2VjMxmw dGFibGU+PHRhYmxlIHdpZH SdNAzkLEWaDjYlpDbkJK7c Qr2aLBHvONOmcDvreSPdOp Fcg6hkBRPl UIyfHU1ycKhrE7WnyGD3RF Zpv0r9Tz55Y63nS0JfpIE+ CXUglAB4lZA9uZ7rExVrOm W3XHnaG781 FbWwtNGdSzulo7osa4fkdJ m0VaLfMSKclcRhnLluNAL2 m1ZlTx04D52bAZcuFVJsLR IyMCUiIHZh gIllpy1kfO3tUg2+PGNvbC K4lHF0lX0wIzIxVoF8GDsi W752AtUhzRDdMljqS15hG7 JvdXA+PHRy Aco5JUNnaCsdIU9efTTeOG syLn7wMIG8PkHiWrQqOPpx X1RgRYSacsdomqcwxRE1MT XwKSKmtN39 Be5jmYglDz8eTGWpWEG5BD MqvLCrN4VlmY7iMsOpQCWa NGJeW7MlsEUaJUuwV863NS vkOxC2IFEt fzOdA1GrENGtbXluNuF7a5 N3Ez6SxUixuTHdZU5dViNc HDt6D4KxSvu1EHWtnKitPV 0ncGFkZGlu Vn9kvWzpqDaiEY0tNIZuwj ous219DcHki0dpZYAfsBUf IEdvHEG2S65lf5E8DWUzMV ArSKI9xGN9 tT6zxOcyfiliuNVofIyttq WwfEzbCFfbBAerE916IVQp oSftJrTWBpm6B7AwFba0DZ AzmDwbYE9b xQNiJKtiNj1xdWpepKtoSI 6mNBHpayuqa277EzVqo5hr IGSldAElMQzdYPL5A25zh8 F7FXIxJUVf VVX1sKR0sW1bqMtncjottK VmdDsgdmVydGljYWwtYWxp H803AXUjwNrkEk9CSxu4Z0 TrJyl0AZNv kRlfMU0unYTlYBgbFt3yoU zofTybAP9aZKMjbpohp701 IuAxm0ylRCUoxWAkAJwvTK K7H38yj3A2 DWItZEBmZMW5wQW8xW9eqL lnbjogbGVmdDsgdmVydGlj GJoiOHpwA420ZEEybHykYm BheWVyOjwv dGQ+ZZ94cp15V2PwAoyhBs k4XBRgTCJ0fII9kG0xVMSj QWnco2D0wZD4B9ZqjvEkjc 7tj5riQPTs ZTo (more content not included)... [facility] Consent Formson 05-23-2023 Consent Forms [id number]#1.0 0OTGTIFF [facility] Discharge Instructionson Discharge Instructions [id number]#1.00 OTGTIFF [facility] ED Clinical Summaryon 2022 ED Clinical Summary [facility] ? Urgent Care [address] [place] [id number] Clinical Summary PERSON INFORMATION Name: JESUS PRADHAN Age: 37 Years Sex: FEMALE : 1985 MRN: Acct#: Visit Reason: UC - Elbow Injury; LEFT ELBOW PAIN/INJURY Arrival: 05/22/2023 10:27:29 Discharge: 05/22/2023 11:45:00 LOS: 000 01:18 Check In: 05/22/2023 10:27:29 Checkout: 05/22/2023 11:45:00 Address: [address] [place] [id number] PCP: Provider, None PROVIDER INFORMATION Provider Role [...] verbalizes understanding of instructions given Comment: Normal [facility] ED Patient Summaryon 023 ED Patient Summary [facility] ? Urgent Care [address] [id number] PATIENT DISCHARGE INSTRUCTIONS Patient Information Name: JESUS [...] by your health care provider. ? Take uoxv-rzr-esskzef and prescription medicines only as told by [...] get worse. (more content not included)... Normal [facility] Urgent Care Note- Provideron 05-22-2023 Urgent Care Note- Provider Patient: JESUS PRADHAN Age: 37 years Sex: FEMALE : 1985 Associated Diagnoses: Sprain of left elbow Author: Dean Soni PA-C History of Present Illness OCCUPATIONAL HEALTH FOLLOW-UP Date of injury: 05/14/23 Claim #: Employer: [employer] Mechanism of Injury: Slipped walking down an embankment, catching herself with her left arm outstretched. Diagnosis: Left elbow sprain This is a 37 year old here today with concerns of persisting left elbow pain after a fall at work on 05/14/23. She works for [employer] and was out in the field walking [...] and Plan Diagnosis Sprain of left elbow ([id number] S53.402A, Discharge, Medical) Plan Condition: Stable. Disposition: [...] 05/22/2023 11:30 EDT] Dean Soni PA-C Normal [facility] Urgent Care Recordon 023 Urgent Care Record [facility] ? Urgent Care [address] [place] [address] PATIENT DISCHARGE INSTRUCTIONS Patient Information Name: JESUS PRADHAN Age: 37 Years Date of : 1985 Reason For Visit: UC - Elbow Injury; LEFT ELBOW PAIN/INJURY Arrival Time: 05/22/2023 10:27:29 Primary Care Physician: Provider, None Attending Physician: Dean Soni PA-C Comment: Visit Diagnosis: Diagnoses This Visit Sprain of left elbow (S53.402A) UC - Elbow Injury ([id number]) If you received any narcotics, sedation, or [...] and treatment you received today in the [facility] were for an urgent problem and are not intended as complete care. It is important for you to follow up with a doctor, nurse practitioner, or physician?s temporary administrative assistant for ongoing care. If your symptoms [...] so we can reach you if necessary. [facility] has provided you with a complete list of medications post discharge. Please inform your primary care provider/provider of your visit and for further instruction [...] a te (more content not included)... Normal [facility] XR Elbow Complete Lefton XR [...] MD 05/22/23 11:17 a Technologist: Dirk JAVIER [facility] Pap IG, rfx Aptima HPV, rfx 16/18,45on 01-29-2023 . . Normal [facility] Comment on above: Result Comment: Perf ormed at: WB Performed By: #### P APHR2A #### [facility] [address] [address] [address] Amari Diego DIAGNOSIS: Comment Abnormal [facility] Comment on above: Result Comment: EPIT HELIAL CELL ABNORMALITY. LOW GRADE SQUAMOUS INTRAEPITHELIAL LESION (LSIL). Performed at: WB Performed By: #### P APHR2A #### [facility] [address] [address] [address] Amari Diego Electronically signed by: Comment Normal [facility] Comment on above: Result Comment: Silvia Kumar MD, Pathologist Performed at: WB Performed By: #### P APHR2A #### [facility] [address] [address] [address] Amari Diego HPV Aptima Positive Abnormal Negative [facility] Comment on above: Result Comment: This nucleic acid amplification test detects fourteen high-risk HPV types (16,18,31,33,35,39,45,51,52,56,58,59,66,68) without differentiation. Performed at: =G Performed By: #### P APHR2A #### [facility] [address] [address] [address] Amari Diego HPV Genotype Reflex Comment Normal [facility] Comment on above: Result Comment: Crit eria not met, HPV Genotype not performed. Performed at: WB Performed By: #### P APHR2A #### [facility] [address] [address] [address] Amari Diego Methodology: Comment Normal [facility] Comment on above: Result Comment: This liquid based ThinPrep(R) pap test was screened with the use of an image guided system. Performed at: WB Performed By: #### P APHR2A #### [facility] [address] [address] [address] Amari Diego Note: Comment [facility] Comment on above: Result Comment: The [...] Performed By: #### P APHR2A #### [facility] [address] [place] [address] Dr. Amari Diego Pathologist Provided ICD10 Comment [facility] Comment on above: Result Comment: [id number] Performed at: WB Performed By: #### P APHR2A #### [facility] [address] [place] [address] Dr. Amari Diego Performed by: Comment [facility] Comment on above: Result Comment: Marce Ford, Industrial Engineering Manager (ASCP) Performed at: WB Performed By: #### P APHR2A #### [facility] [address] [place] [address] Dr. Amari Diego Recommendation: Comment Abnormal [facility] Comment on above: Result Comment: Sugg est follow up as clinically appropriate. Performed at: WB Performed By: #### P APHR2A #### [facility] [address] [place] [address] Dr. Amari Diego Specimen adequacy: Comment [facility] Comment on above: Result Comment: Sati sfactory for evaluation. Endocervical and/or squamous metaplastic cells (endocervical component) are present. Performed at: WB Performed By: #### P APHR2A #### [facility] [address] [place] [address] Dr. Amari Diego PAP ACOG PANEL 2: 30 to 65on 08-22-2022 . . Normal [facility] Comment on above: Result Comment: Perf ormed at: WB Performed By: #### [id number] #### [facility] [address] [place] [address] Dr. Amari Diego Age Gdln ACOG Testing 30-65 [facility] Comment on above: Performed By: #### [id number] #### [facility] [address] [address] [address] Amari Diego DIAGNOSIS: Comment Abnormal [facility] Comment on above: Result Comment: EPIT HELIAL CELL ABNORMALITY. LOW GRADE SQUAMOUS INTRAEPITHELIAL LESION (LSIL). Performed at: WB Performed By: #### [id number] #### [facility] [address] [address] [address] Amari Diego Electronically signed by: Comment Normal [facility] Comment on above: Result Comment: Armaan Muro MD, Pathologist Performed at: WB Performed By: #### [id number] #### [facility] [address] [address] [address] Amari Diego HPV Aptima Positive Abnormal Negative [facility] Comment on above: Result Comment: This nucleic acid amplification test detects fourteen high-risk HPV types (16,18,31,33,35,39,45,51,52,56,58,59,66,68) without differentiation. Performed at: =G Performed By: #### [id number] #### [facility] [address] [place] [address] Dr. Amari Diego HPV Genotype Reflex Comment Normal [facility] Comment on above: Result Comment: Crit eria not met, HPV Genotype not performed. Performed at: WB Performed By: #### [id number] #### [facility] [address] [place] [address] Dr. Amari Diego Methodology: Comment Normal [facility] [place] Comment on above: Result Comment: This liquid based ThinPrep(R) pap test was screened with the use of an image guided system. Performed at: WB Performed By: #### [id number] #### [facility] [address] [place] [address] Dr. Amari Diego Note: Comment Normal [facility] [place] Comment on above: Result Comment: The Pap smear is a screening test designed to aid in the detection of premalignant and malignant conditions of the uterine cervix. It is not a diagnostic procedure and should not be used as the sole means of detecting cervical cancer. Both false-positive and false-negative reports do occur. . Performed at: WB Performed By: [id number] #### [facility] [address] [place], [place] [address] Dr. Amari Diego Pathologist Provided ICD10 Comment Normal [facility] [place] Comment on above: Result Comment: R87. [id number] Performed at: WB Performed By: [id number] #### [facility] [address] [place], [place] [address] Dr. Amari Diego Performed by: Comment Normal [facility] Comment on above: Result Comment: Ilya Nelson, Industrial Engineering Manager (ASCP) Performed at: [facility] Performed By: #### [id number] #### [facility] [address] [place], [place] [address] Dr. Amari Diego Specimen adequacy: Comment Normal [facility] Comment on above: Result Comment: Sati sfactory for evaluation. No endocervical component is identified. Performed at: WB Performed By: #### [id number] #### [facility] [address] [place], [place] [address] Dr. Amari Diego Vital Signs Date Time Vital Sign Value Performing Clinician Faci lity 06-08-2025 14:36-0400 Body mass index (BMI) [Ratio] 31.49 kg/m2 Pushpa Susanne DO Work Phone: [facility] 06-08-2025 14:36-0400 Body weight 93.95 kg Pushpa Susanne DO Work Phone: [facility] 06-08-2025 14:36-0400 Diastolic blood pressure 76 mm[Hg] Pushpa Susanne DO Work Phone: [facility] 06-08-2025 14:36-0400 Systolic blood pressure 130 mm[Hg] Pushpa Susanne DO Work Phone: [facility] 06-03-2024 08:33-0400 Body mass index (BMI) [Ratio] 34.53 kg/m2 Veronica RAMESH Work Phone: [facility] 06-03-2024 08:33-0400 Body weight 103.02 kg Veronica RAMESH Work Phone: [facility] 06-03-2024 08:33-0400 Diastolic blood pressure 60 mm[Hg] Veronica RMAESH Work Phone: [facility] 06-03-2024 08:33-0400 Systolic blood pressure 120 mm[Hg] Veronica RAMESH Work Phone: [facility] 10-23-2023 13:40-0500 Body mass index (BMI) [Ratio] 34.26 kg/m2 Pushpa Susanne DO Work Phone: [facility] 10-23-2023 13:40-0500 Body weight 105.23 kg Pushpa Susanne DO Work Phone: [facility] 10-23-2023 13:40-0500 Diastolic blood pressure 86 mm[Hg] Pushpa Susanne DO Work Phone: [facility] 10-23-2023 13:40-0500 Systolic blood pressure 130 mm[Hg] Pushpa Susanne DO Work Phone: [facility] Encounters Encounter Date Encounter Type Care Provider Facility Start: 06-08-2025 End: 06-08-2025 Bamboo flowsheet Pushpa Susanne DO Work Phone: [facility] Start: 06-08-2025 End: 06-08-2025 Bamboo flowsheet Pushpa Susanne DO Work Phone: [facility] Start: 06-08-2025 End: 06-08-2025 Patient encounter procedure Pushpa Susanne DO Work Phone: [facility] Work Phone: Start: 06-08-2025 End: 06-08-2025 Periodic preventive med est patient 18-39 yrs Pushpa Susanne DO Work Phone: [facility] Comment on above: Well woman exam with routine gynecological exam Start: 06-03-2024 End: 06-03-2024 Bamboo flowsheet Veronica RAMESH Work Phone: [facility] Start: 06-03-2024 End: 06-03-2024 Bamboo flowsheet Veronica RAMESH Work Phone: [facility] Start: 06-03-2024 End: 06-03-2024 Postop follow up visit related to original px Veronica RAMESH Work Phone: [facility] Comment on above: Postoperative examin ation Start: 06-03-2024 End: 06-03-2024 ambulatory VERONICA LI Not Available Start: 04-29-2024 End: 04-29-2024 ambulatory VERONICA LI Not Available Start: 04-22-2024 End: 04-22-2024 ambulatory Pushpa Susanne [facility] Work Phone: Start: 04-22-2024 End: 04-22-2024 Departed Referred DO Pushpa Susanne Work Phone: [facility] Start: 03-24-2024 End: 03-24-2024 ambulatory PUSHPA SUSANNE Not Available Start: 02-24-2024 End: 02-24-2024 ambulatory PUSHPA SUSANNE Not Available Start: 10-23-2023 End: 10-23-2023 Patient encounter procedure Pushpa Susanne DO Work Phone: [facility] Comment on above: Vaginal irritation Start: 10-23-2023 End: 10-23-2023 ambulatory Pushpa Susanne [facility] Work Phone: Start: 10-23-2023 End: 10-23-2023 Departed Referred Pushpa Susanne Work Phone: [facility] Start: 09-26-2023 End: 09-26-2023 ambulatory PUSHPA SUSANNE Not Available Start: 08-19-2023 End: 08-19-2023 ambulatory PUSHPA SUSANNE Not Available Start: 05-22-2023 End: 05-22-2023 ambulatory None Provider Facility:[facility] Start: 01-21-2023 End: 01-21-[address] NONE LISTED REQUEST Facility: Start: 08-15-2022 End: 08-15-2022 ambulatory NONE LISTED REQUEST Facility: Plan of Treatment Date Care Activity Detail Author Start: 06-08-2025 End: 06-08-2025 Patient encounter procedure [facility] Comment on above: Arrived Start: 05-17-2025 Influenza vaccination Influenza Vacc ine (#1) [facility] Start: 06-03-2024 End: 06-03-2024 Patient encounter procedure 06/03/2024 8:30 AM EDT Office Visit [facility] [address] [place], [phone] Veronica Li PA [address] [place], [place] [address] Arrived [facility] Comment on above: Arrived Start: 05-17-2024 Influenza vaccination Influenza Vacc ine (#1) [facility] Start: 02-24-2024 End: 02-24-2024 Patient encounter procedure 02/24/2024 2:00 PM EDT Procedure Visit [facility] [address] [place] [phone] Pushpa Skinner, [address] Edu [place], [facility]11 [facility] Cytology Cervical or vaginal smear or scraping study Pap Smear Pathology and Cytology Routine Well woman exam with routine gynecological exam Ordered: 06/08/2025 [facility] Work Phone: Comment on above: Ordered: 06/08/2025 Human papilloma viru s DNA [Presence] in Unspecified specimen by Probe with amplification HPV DNA probe, amplified Microbiology Routine Well woman exam with routine gynecological exam Ordered: 06/08/2025 [facility] Comment on above: Ordered: 06/08/2025 Immunizations Immunization Date Immunization Notes Care Provider Fa cili 07-11-2020 influenza virus vacc ine, unspecified formulation Veronica RAMESH Work Phone: [facility] Healthcare Payers Date Payer Category Payer Self-pay 2023 Private Health Insurance [employer] [id number] 2023 Unknown [employer] [id number] 2023-Present [address] [place] [address] [id number] 1987 Unknown [id number]. [id number] 1987 Unknown [id number]. [id number] 1987 Unknown [id number] [id number]. [id number] 1987 Unknown [id number] [id number]. 2.1259 1987 Unknown [id number] [id number]. 2.1259 1987 Unknown [id number] [id number]. 2.1259 1987 Unknown [id number] [id number]. 2.1259 1987 Unknown [id number] [id number]. 2.1259 1987 Unknown [id number] [id number]. 2.1259 1987 Unknown [id number]. 2.1259 1959 Self-pay [id number] 1959 Unknown [id number] Unknown [employer] [id number] Social History Date Type Detail Facility Tobacco smoking stat [facility] Unknown if ever smoked [facility] Start: 1985 Sex Assigned At Female F [facility] Start: 05-15-2023 Tobacco smoking stat [facility] Smokes tobacco daily [facility] End: 11-14-2021 History of tobacco use Cigarette Smoker [facility] Start: 10-23-2023 Alcohol intake Ex-drinker (finding) [facility] Start: 05-15-2023 End: 06-08-2025 History of Social function [facility] Start: 05-15-2023 End: 06-08-2025 Tobacco use panel [facility] Start: 05-15-2023 Alcohol Comment occasional [facility] Start: 1985 Sex Assigned At Not on file [facility] Start: 05-14-2023 Gender identity Identifies as female gender (finding) [facility] Start: 02-24-2024 Tobacco smoking stat [facility] Ex-smoker [facility] End: 11-14-2021 History of tobacco use Current smoker [facility] Start: 06-03-2024 End: 06-08-2025 Alcoholic beverage intake Current drinker of alcohol (finding) [facility] History of Present illness Narrative 06-08-2025 Lauritarenetta Jin, JOHN - 06/08/2025 2:00 PM EDT Note Date & Type Note Facility 06-08-2025 History of Presen t illness Narrative Reason for Appointment: Patient ID: Jesus Pradhan is a 39 y.o. female who presents for Well Women Visit Patient presents today for Annual Exam. 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 History of blood transfusion Obesity (BMI 30-39.9) HISTORY PAST MEDICAL HISTORY SOCIAL HISTORY Past Medical History: Diagnosis Date Cervical dysplasia 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 History of blood transfusion Obesity (BMI 30-39.9) Social History Tobacco Use Smoking status: Former Current packs/day: 0.00 Average packs/day: 1 pack/day for 15.0 years (15.0 ttl pk-yrs) Types: Cigarettes Quit date: 11/14/2021 Years since quittin.5 Smokeless tobacco: Not on file Substance Use Topics Alcohol use: Yes Alcohol/week: 4.0 standard drinks of alcohol Types: 1 Glasses of wine, 3 Cans of beer per week Comment: occasional Drug use: Never FAMILY HISTORY Family History Problem Relation Name Age of Onset Diabetes Father Boubacar Pradhan SURGICAL HISTORY Past Surgical History: Procedure Laterality Date ROBOTIC ASSISTED HYSTERECTOMY 04/22/2024 Davinci robot TUBAL LIGATION 2016 REVIEW OF SYSTEMS Review of Systems: Review of Systems Constitutional: Negative. HENT: Negative. Eyes: Negative. Respiratory: Negative. Cardiovascular: Negative. Gastrointestinal: Negative. Genitourinary: Negative. Musculoskeletal: Negative. Skin: Negative. Neurological: Negative. All other systems reviewed and are negative. Hematological: Negative. Endocrine: Negative. Allergic/Immunologic: Negative. OBJECTIVE Objective: Physical Exam Constitutional: Appearance: Normal appearance. She is well-developed. Genitourinary: Vulva normal. Vaginal cuff intact. Cervix is absent. Uterus is absent. Breasts: Breasts are soft. Right: Normal. Left: Normal. Cardiovascular: Rate and Rhythm: Normal rate and regular rhythm. Abdominal: General: Bowel sounds are normal. There [...] nursing note reviewed. Exam conducted with a gps field data collector present. Vitals: Estimated body mass index is 31.49 kg/m as calculated from the following: Height as of 04/29/24: 5' 8 . Weight as of this encounter: 207 lb 1.9 oz. BP: 130/76 Patient's last menstrual period was 02/10/2024. ASSESSMENT & PLAN ICD-10-CM 1. Well woman exam with routine gynecological exam Z01.419 Pap Smear HPV DNA probe, amplified Orders Placed This Encounter Procedures HPV DNA probe, amplified Annual Wellness Exam (Post Hysterectomy): Patient presents today for routine annual exam. Patient states she has no current complaints. Patients vitals were reviewed and within normal limits. Growth and development is noted to be appropriate for age. Menstrual history is noted to be obsolete due to patients history of hysterectomy. No mental health concerns was expressed. Pap Smear: Speculum was inserted into the vagina and pap was obtained without difficulty. HPV testing was performed per guidelines. Patient was advised that pap results could take anywhere from 7 to 10 days to receive and our office will reach out to the patient with those once we have them. Patient can also view results via [facility]. I reinforced importance of condom use for STI prevention. Patient declined cultures to be performed with today's visit. Breast Exam: Upon examination, clinical breast exam was noted to be normal. Patient was counseled on breast self-awareness, including the importance of knowing what is normal for her own breasts and promptly reporting any changes such as new lumps, skin dimpling, nipple discharge, or pain. Screening mammogram recommended annually beginning at age 40 or earlier if risk factors are present. Discussed signs and symptoms of breast cancer and when to seek medical attention. Answered all patient questions. Follow Up: Patient is to return to our office in one year for annual exam unless needed otherwise. Documented by Laurita Jin LPN on behalf of: Pushpa Skinner DO documented in this encounter [facility] History of Present illness Narrative 06-03-2024 GADIEL Madison - 06/03/2024 8:30 AM EDT Note Date & Type Note Facility 06-03-2024 History of Presen t illness Narrative Reason for Appointment: Patient ID: Jesus Pradhan is a 38 y.o. female who presents for Post-op Visit Patient presents today for 6 week Hy Post Op Follow Up appointment. 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 History of blood transfusion Obesity (BMI 30-39.9) HISTORY PAST MEDICAL HISTORY SOCIAL HISTORY Past Medical History: Diagnosis Date Cervical dysplasia 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 History of blood transfusion Obesity (BMI 30-39.9) Social History Tobacco Use Smoking status: Former Current packs/day: 0.00 Average packs/day: 1 pack/day for 15.0 years (15.0 ttl pk-yrs) Types: Cigarettes Quit date: 11/14/2021 Years since quittin.5 Smokeless tobacco: Not on file Substance Use Topics Alcohol use: Yes Alcohol/week: 4.0 standard drinks of alcohol Types: 1 Glasses of wine, 3 Cans of beer per week Comment: occasional Drug use: Never FAMILY HISTORY Family History Problem Relation Name Age of Onset Diabetes Father Boubacar Pradhan SURGICAL HISTORY Past Surgical History: Procedure Laterality Date ROBOTIC ASSISTED HYSTERECTOMY 04/22/2024 Davinci robot TUBAL LIGATION 2017 REVIEW OF SYSTEMS Review of Systems: Review of Systems Constitutional: Negative. HENT: Negative. Eyes: Negative. Respiratory: Negative. Cardiovascular: Negative. Gastrointestinal: Negative. Genitourinary: Negative. Musculoskeletal: Negative. Skin: Negative. Neurological: Negative. All other systems reviewed and are negative. Hematological: Negative. Endocrine: Negative. Allergic/Immunologic: Negative. OBJECTIVE Objective: Physical Exam Constitutional: Appearance: Normal appearance. She is well-developed. Genitourinary: Vulva normal. Vaginal cuff intact. Cervix is not absent. Uterus is not absent. Cardiovascular: Rate and Rhythm: Normal rate and regular rhythm. Abdominal: General: Bowel sounds are normal. There [...] nursing note reviewed. Exam conducted with a gps field data collector present. Vitals: Estimated body mass index is 34.53 kg/m as calculated from the following: Height as of 24: 5' 8 . Weight as of this encounter: 227 lb 1.9 oz. BP: 120/60 Patient's last menstrual period was 02/10/2024. ASSESSMENT & PLAN ICD-10-CM 1. Postoperative examination Z09 Post Op Follow Up: Patient presents today for a 6 week postop check following a Da Aura assisted Laparoscopic Hysterectomy. Surgery execution and pathology results were discussed in great detail with the patient. Pelvic exam was performed and vaginal cuff was noted as healing well. Sutures were present and removed with ring forceps. Patient has been instructed to sustain from sexual intercourse for one more week. All other restrictions have otherwise been lifted. Follow Up: Patient is to return in 1 year for annual exam unless needed otherwise. 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 Exam conducted with a gps field data collector present. Vitals: Estimated body mass index is [...] time to take affect. punch biopsy used, chicken picker and scissors used to remove affected area. Placed in formalin and sent to pathology. Post-procedure instructions given. Pt to apply clobetasol cream to affected area daily for one month. Documented by Laurita Jin LPN on behalf of: Pushpa Skinner DO documented in this encounter [facility] Clinical Note 05-22-2023 Note Date & Type [...] by your health care provider. ? Take [id number] and prescription medicines only as told by [...] icing, applying pressu (more content not included)... [facility] Evaluation note Note Date & Type Note Facility Evaluation note No assessment information availa [facility] Work Phone: Evaluation note Note Date & Type Note Facility Evaluation note Diagnosis Vaginal irritation Pruritus of genital organs documented in this encounter [facility] Evaluation note Note Date & Type Note Facility Evaluation note Diagnosis Postoperative examination Follow-up examination, following unspecified surgery documented in this encounter [facility] Evaluation note Note Date & Type Note Facility Evaluation note Diagnosis Well woman exam with routine gynecological exam Routine gynecological examination documented in this encounter [facility] Summary Purpose Family History No Family History Records FoundNo Family History Records FoundNo Family History Records FoundNo Family History Records Found Advance Directives No Advanced Directives Records FoundNo Advanced Directives Records FoundNo Advanced Directives Records FoundNo Advanced Directives Records Found Additional Source Comments INFORMATION SOURCE (unrecogn ized section and content) DATE CREATED AUTHOR 01/30/2023 [facility] DATE CREATED AUTHOR AUTHOR'S ORGANIZ ATION 05/24/2023 [facility] DATE CREATED AUTHOR AUTHOR'S ORGANIZ ATION 04/29/2024 [facility] DATE CREATED AUTHOR AUTHOR'S ORGANIZ ATION 06/05/2024 [facility] [employer] Care Teams (unrecognized sec tion and content) Team Status: Inactive Member Role Status Dates Pushpa Skinner Attending Provider Active Start: Tamela huston 2023 End: October 23, 2023 Team Status: Inactive Member Role Status Dates Pushpa Skinner DO Attending Provider Active Start : April 22, 2024 End: April 22, 2024 Lead Ios Developer Relationship Specialty Start Date End Date Veronica Li PA [address] [place] [address] PCP - [facility] [employer] 03/16/19 09/15/99 Lead Ios Developer Relationship Specialty Start Date End Date Vernoica Li PA [address] [place] [address] PCP - [facility] [employer] 03/16/19 09/15/99 Lead Ios Developer Relationship Specialty Start Date End Date Veronica Li PA [address] [place] [address] [place] [address] PCP - [facility] [employer] 03/16/19 09/15/99 Goals (unrecognized section and content) Goals may be documented in a n alternate sectionGoals may be documented in an alternate section Reason for Visit (unrecogniz ed section and content) Reason Comments vaginal biopsy Reason Comments Post-op Visit Reason Comments Well Women Visit FOR RECORDS PERTAINING TO PATIENTS WHO ARE [...] BE BASED ON THE PRIMARY CLINICAL RECORDS. [employer] [facility]. provides no warranty or guarantee of the accuracy or completeness of information in this document.
[2025-06-15 11:08] LABS: Age Gdln ACOG Testing Note (.); IGP, Aptima HPV, rfx 16/18,45 Note (.)
== END 2025-06-08 19:25 | disposition home or self-care (01) ==
LOC: LAB 19:24
PROVIDERS: Visit Provider Obstetrics & Gynecology
DX: Z01.419 Encounter for gynecological examination (general) (routine) without abnormal findings (principal)
CPT/HCPCS: 87624; 88175